=== PATIENT | male | born 1930 | race Caucasian/White ===

== ENCOUNTER 2017-06-01 11:24 | Emergency (ER) | payer OTHER ==
[2017-06-01 11:31] VITALS: BP 111/69; PULSE 82; TEMP 98.1; BMI 26.3
--- NOTE | 2017-06-01 11:47 | PDOC ---
History of Present Illness - General Chief Complaint: Headache Stated Complaint: HEADACHE Time Seen by Provider: 06/01/17 11:46 History Source: Patient Exam Limitations: No Limitations - History of Present Illness Initial Comments: 06/01/17 11:47 CHIEF COMPLAINT: Headache HISTORY OF PRESENT ILLNESS: This is an 83 year old male with a history of HTN, HLD, CAD, CHF, NIDDM, anemia requiring transfusions, AFib (on Coumadin), lung cancer s/p lobectomy, AAA repair, and TAVR who presents ambulatory to the ED complaining of 3 days of headache. The headache was gradual in onset. It initiated in the right temporal region but is now more occipital in location. He denies neck pain (although he does have some neck pain when he looks down at the floor), visual changes, focal weakness or numbness, change in gait or speech , or any other symptoms. His pain has not been relieved at all by Tylenol. He states that he does not usually get headaches. PCP is Dr. Mercedes. V/s on arrival are unremarkable. REVIEW OF SYSTEMS: GENERAL/CONSTITUTIONAL: No fever or chills. No weakness. No weight change. HEAD, EYES, EARS, NOSE AND THROAT: No change in vision. No ear pain or discharge. No sore throat. CARDIOVASCULAR: No chest pain or palpitations. RESPIRATORY: No cough, wheezing, or shortness of breath. GASTROINTESTINAL: No nausea, vomiting, diarrhea or constipation. GENITOURINARY: No dysuria, frequency, or change in urination. MUSCULOSKELETAL: No joint or muscle swelling or pain. No neck or back pain. SKIN: No rash or easy bruising. NEUROLOGIC: See HPI. PSYCHIATRIC: No depression or anxiety. ENDOCRINE: No increased thirst. No abnormal weight change. HEMATOLOGIC/LYMPHATIC: No anemia, easy bleeding, or history of blood clots. ALLERGIC/IMMUNOLOGIC: No hives or skin allergy. No latex allergy. PHYSICAL EXAM: GENERAL: The patient is awake, alert, and fully oriented, in no acute distress. HEAD: Normal with no signs of trauma. ENT: Pupils equal, round and reactive to light, extraocular movements intact, sclera anicteric, conjunctiva clear. Neck supple. LUNGS: Clear to auscultation bilaterally. Normal excursion. No respiratory distress or use of accessory muscles. CV: RRR, S1/S2, no MRG. Cap refill < 2 sec. ABDOMEN: Soft, non-distended, non-tender. EXTREMITIES: Normal range of motion, no edema. NEUROLOGICAL: Normal speech, normal gait. CN II-XII grossly intact. PSYCH: Normal mood, normal affect. SKIN: Warm, dry, normal turgor, no rashes or lesions noted. Past History - Past Medical History Allergies/Adverse Reactions: Allergies Allergy/AdvReac Type Severity Reaction Status Date / Time No Known Allergies Allergy Verified 06/01/17 11:31 Home Medications: Ambulatory Orders Atorvastatin Ca [Lipitor] 40 mg PO HS #0 12/01/14 Glimepiride [Amaryl -] 4 mg PO BIDAC #0 tablet 12/01/14 Sitagliptin Phosphate [Januvia -] 25 mg PO DAILY@0700 #0 tab 12/01/14 Amlodipine Besylate [Norvasc -] 5 mg PO DAILY 06/01/17 Carvedilol [Coreg -] 25 mg PO BID 06/01/17 Furosemide [Lasix -] 80 mg PO BID 06/01/17 Levothyroxine [Synthroid -] 100 mcg PO DAILY@0700 06/01/17 Warfarin Na [Coumadin -] 5 mg PO ASDIR 06/01/17 Anemia: Yes (d/t ASPRIN) Asthma: No Cancer: Yes (LUNG cancer) Cardiac Disorders: Yes (3 CARDIAC STENTS ,SOB, AORTIC ANEYRSM IN 1990) CVA: No COPD: No CHF: Yes Dementia: No Diabetes: Yes (TYPE 2,NEUROPATHIES) GI Disorders: No Disorders: No HTN: Yes Hypercholesterolemia: Yes Liver Disease: No Seizures: No Thyroid Disease: Yes (HYPO) - Surgical History Abdominal Surgery: Yes (hx HERNIA) Appendectomy: No Cardiac Surgery: Yes (3 STENTS, abdominalAORTIC ANERYSM) Cholecystectomy: No Lung Surgery: No Neurologic Surgery: No Orthopedic Surgery: No - Immunization History Immunization Up to Date: Yes - Psycho/Social/Smoking Cessation Hx Anxiety: No Suicidal Ideation: No Smoking Status: Yes Smoking History: Former smoker Have you smoked in the past 12 months: No Number of Cigarettes Smoked Daily: 0 If you are a former smoker, when did you quit?: 1990 Cigars Per Day: 0 Information on smoking cessation initiated: No Hx Alcohol Use: No Drug/Substance Use Hx: No Substance Use Type: None Hx Substance Use Treatment: No *Physical Exam - Vital Signs Last Vital Signs Temp Pulse Resp BP Pulse Ox 98.1 F 82 16 111/69 99 06/01/17 11:28 06/01/17 11:28 06/01/17 11:28 06/01/17 11:28 06/01/17 11:28 ED Treatment Course - LABORATORY CBC & Chemistry Diagram: 06/01/17 12:45 06/01/17 12:45 Medical Decision Making - Medical Decision Making 06/01/17 12:27 A/P: 86 year old male with headache which is atypical for him and unrelieved by OTC meds. 1. Basic labs + ESR/CRP 2. CTH 3. Reglan 10mg IVP + Benadrly 12.5mg IVP for symptomatic relief 4. Re-assess 06/01/17 13:47 CTH: No acute intracranial pathology. INR 2.4 Cr 1.9- baseline 06/01/17 15:01 Pain has improved. Discussed with neurology (Dr. Olivares) - will evaluate patient in ED prior to disposition. 06/01/17 15:[address] Olivares and cleared for discharge. Return precautions reviewed. *DC/Admit/Observation/Transfer Diagnosis at time of Disposition: Headache Qualifiers: Headache chronicity pattern: acute headache Intractability: not intractable - Discharge Dispostion Admit: No - Referrals Referrals: Anibal Mercedes MD [Primary Care Provider] - Dominic Olivraes MD [Staff Physician] - 1 week - Patient Instructions Printed Discharge Instructions: DI for Headache Additional Instructions: -Rest and stay well-hydrated -Follow up with the neurologist (contact information enclosed) in one week -Return here for sudden/severe headache, weakness or numbness in your arms or legs, changes in vision or speech, or any other concerning symptoms
[2017-06-01] MEDS ORDERED: METOCLOPRAMIDE HCL INJECTION 10 MG/2 ML VIAL IVPB ONE (11:58)
[2017-06-01] MEDS ORDERED: METOCLOPRAMIDE HCL INJECTION 10 MG/2 ML VIAL ONE (12:39)
[2017-06-01 12:53] LABS: BASOPHIL 0.8 % (0-2.0); EOSINOPHIL 1.5 % (0-4.5); MCH 27.1 pg (25.7-33.7); MCHC 33.3 g/dl (32.0-35.9); MEAN CELL VOLUME 81.3 fl (80-96); MEAN PLT VOLUME 8.6 fl (7.5-11.1); NEUTROPHILS 76.4 % (42.8-82.8); PLATELET COUNT 152 K/MM3 (134-434); RDW 15.7 % (11.9-15.9); WHITE BLOOD COUNT 8.7 K/mm3 (4.0-10.0)
[2017-06-01 13:07] LABS: INR 2.43 (0.82-1.09); PROTHROMBIN TIME (PATIENT) 27.2 SEC (9.98-11.88)
[2017-06-01 13:20] LABS: ALBUMIN 3.4 g/dl (3.4-5.0); ANION GAP 7 (8-16); CALCIUM 8.6 mg/dL (8.5-10.1); CO2 28 mmol/L (21-32); CREATININE 1.9 mg/dL (0.7-1.3); GLUCOSE,RANDOM 223 mg/dL (74-106); SGOT/AST 8 U/L (15-37); SGPT/ALT 15 U/L (12-78)
[2017-06-01 14:19] LABS: ALK PHOS 60 U/L (45-117); BILIRUBIN,TOTAL 0.6 mg/dL (0.2-1.0); TOT PROT 6.5 g/dl (6.4-8.2)
--- NOTE | 2017-06-01 17:20 | CONSULT ---
Consult - text type - Consultation Consultation Note: Neurology History of Present Illness 83 year old male with a history of HTN, HLD, CAD, CHF, NIDDM, anemia requiring transfusions, AFib (on Coumadin), lung cancer s/p lobectomy, AAA repair, and TAVR who presents ambulatory to the ED complaining of 3 days of headache. The headache was gradual in onset. It initiated in the right frontal region but is now more occipital in location. He denies neck pain (although he does have some neck pain when he looks down at the floor), visual changes, focal weakness or numbness, change in gait or speech, or any other symptoms. His pain has not been relieved at all by Tylenol. He states that he does not usually get headaches. I saw the patient in the ER and was doing well after hacing cup of tea (possibly improved with caffeine). He completed CT head which was negative for acute pathology. ESR was increased to 50 but does seem to be GCA as location is fronto-occipital. Also patient with cold and may be just acute phase reaction. Past History - Past Medical History Allergies/Adverse Reactions: Allergies Allergy/AdvReac Type Severity Reaction Status Date / Time No Known Allergies Allergy Verified 06/01/17 11:31 Home Medications: Ambulatory Orders Atorvastatin Ca [Lipitor] 40 mg PO HS #0 12/01/14 Glimepiride [Amaryl -] 4 mg PO BIDAC #0 tablet 12/01/14 Sitagliptin Phosphate [Januvia -] 25 mg PO DAILY@0700 #0 tab 12/01/14 Amlodipine Besylate [Norvasc -] 5 mg PO DAILY 06/01/17 Carvedilol [Coreg -] 25 mg PO BID 06/01/17 Furosemide [Lasix -] 80 mg PO BID 06/01/17 Levothyroxine [Synthroid -] 100 mcg PO DAILY@0700 06/01/17 Warfarin Na [Coumadin -] 5 mg PO ASDIR 06/01/17 Anemia: Yes (d/t ASPRIN) Asthma: No Cancer: Yes (LUNG cancer) Cardiac Disorders: Yes (3 CARDIAC STENTS ,SOB, AORTIC ANEYRSM IN 1990) CVA: No COPD: No CHF: Yes Dementia: No Diabetes: Yes (TYPE 2,NEUROPATHIES) GI Disorders: No Disorders: No HTN: Yes Hypercholesterolemia: Yes Liver Disease: No Seizures: No Thyroid Disease: Yes (HYPO) - Surgical History Abdominal Surgery: Yes (hx HERNIA) Appendectomy: No Cardiac Surgery: Yes (3 STENTS, abdominalAORTIC ANERYSM) Cholecystectomy: No Lung Surgery: No Neurologic Surgery: No Orthopedic Surgery: No - Immunization History Immunization Up to Date: Yes - Psycho/Social/Smoking Cessation Hx Anxiety: No Suicidal Ideation: No Smoking Status: Yes Smoking History: Former smoker Have you smoked in the past 12 months: No Number of Cigarettes Smoked Daily: 0 If you are a former smoker, when did you quit?: 1991 Cigars Per Day: 0 Information on smoking cessation initiated: No Hx Alcohol Use: No Drug/Substance Use Hx: No Substance Use Type: None Hx Substance Use Treatment: No REVIEW OF SYSTEMS: GENERAL/CONSTITUTIONAL: No fever or chills. No weakness. No weight change. HEAD, EYES, EARS, NOSE AND THROAT: No change in vision. No ear pain or discharge. No sore throat. CARDIOVASCULAR: No chest pain or palpitations. RESPIRATORY: No cough, wheezing, or shortness of breath. GASTROINTESTINAL: No nausea, vomiting, diarrhea or constipation. GENITOURINARY: No dysuria, frequency, or change in urination. MUSCULOSKELETAL: No joint or muscle swelling or pain. No neck or back pain. SKIN: No rash or easy bruising. PSYCHIATRIC: No depression or anxiety. ENDOCRINE: No increased thirst. No abnormal weight change. HEMATOLOGIC/LYMPHATIC: No anemia, easy bleeding, or history of blood clots. ALLERGIC/IMMUNOLOGIC: No hives or skin allergy. No latex allergy. *Physical Exam - Vital Signs Last Vital Signs Temp Pulse Resp BP Pulse Ox 98.1 F 82 16 111/69 99 06/01/17 11:28 06/01/17 11:28 06/01/17 11:28 06/01/17 11:28 06/01/17 11:28 PHYSICAL EXAM: GENERAL: The patient is awake, alert, and fully oriented, in no acute distress. HEAD: Normal with no signs of trauma. ENT: Pupils equal, round and reactive to light, extraocular movements intact, sclera anicteric, conjunctiva clear. Neck supple. LUNGS: Clear to auscultation bilaterally. Normal excursion. No respiratory distress or use of accessory muscles. CV: RRR, S1/S2, no MRG. Cap refill < 2 sec. ABDOMEN: Soft, non-distended, non-tender. EXTREMITIES: Normal range of motion, no edema. NEUROLOGICAL: Normal speech, normal gait. CN II-XII grossly intact. PSYCH: Normal mood, normal affect. SKIN: Warm, dry, normal turgor, no rashes or lesions noted. CBCD WBC 8.7 K/mm3 (4.0-10.0) 06/01/17 12:45 RBC 4.27 M/mm3 (4.00-5.60) D 06/01/17 12:45 Hgb 11.6 GM/dL (11.7-16.9) L D 06/01/17 12:45 Hct 34.7 % (35.4-49) L D 06/01/17 12:45 MCV 81.3 fl (80-96) 06/01/17 12:45 MCHC 33.3 g/dl (32.0-35.9) 06/01/17 12:45 RDW 15.7 % (11.9-15.9) 06/01/17 12:45 Plt Count 152 K/MM3 (134-434) 06/01/17 12:45 MPV 8.6 fl (7.5-11.1) 06/01/17 12:45 CMP Sodium 141 mmol/L (136-145) 06/01/17 12:45 Potassium 4.3 mmol/L (3.5-5.1) 06/01/17 12:45 Chloride 106 mmol/L (98-107) 06/01/17 12:45 Carbon Dioxide 28 mmol/L (21-32) 06/01/17 12:45 Anion Gap 7 (8-16) L 06/01/17 12:45 BUN 41 mg/dL (7-18) H 06/01/17 12:45 Creatinine 1.9 mg/dL (0.7-1.3) H 06/01/17 12:45 Creat Clearance w eGFR 33.62 (>60) 06/01/17 12:45 Calcium 8.6 mg/dL (8.5-10.1) 06/01/17 12:45 Total Bilirubin 0.6 mg/dL (0.2-1.0) D 06/01/17 12:45 AST 8 U/L (15-37) L D 06/01/17 12:45 ALT 15 U/L (12-78) D 06/01/17 12:45 Alkaline Phosphatase 60 U/L (45-117) D 06/01/17 12:45 Total Protein 6.5 g/dl (6.4-8.2) 06/01/17 12:45 Albumin 3.4 g/dl (3.4-5.0) 06/01/17 12:45 Medical Decision Making 83 year old male with a history of HTN, HLD, CAD, CHF, NIDDM, anemia requiring transfusions, AFib (on Coumadin), lung cancer s/p lobectomy, AAA repair, and TAVR who presents ambulatory to the ED complaining of 3 days of headache. The headache was gradual in onset. It initiated in the right frontal region but is now more occipital in location. He denies neck pain (although he does have some neck pain when he looks down at the floor), visual changes, focal weakness or numbness, change in gait or speech, or any other symptoms. His pain has not been relieved at all by Tylenol. He states that he does not usually get headaches. I saw the patient in the ER and was doing well after hacing cup of tea (possibly improved with caffeine). He completed CT head which was reviewed and negative for acute pathology. ESR was increased to 50 but does seem to be GCA as location is fronto-occipital. Also patient with cold and may be just acute phase reaction. Increased hydration discussed. Patient will follow up as outpatient. Has PPM and therefore would not be able to have MRI and does not seem needed. Continued BP control for HTN, normotensive in ER. Monitor glucose, goal is to be in euglycemic range.
== END 2017-06-01 16:10 | disposition home or self-care (01) ==
LOC: JER 11:24
PROC: 3E033GC Introduction of Other Therapeutic Substance into Peripheral Vein, Percutaneous Approach (ICD-10-PCS; principal; 2017-06-01)
DX: R51 Headache (principal); I10 Essential (primary) hypertension; I25.10 Atherosclerotic heart disease of native coronary artery without angina pectoris; I50.9 Heart failure, unspecified; E11.9 Type 2 diabetes mellitus without complications; I48.91 Unspecified atrial fibrillation; Z79.01 Long term (current) use of anticoagulants
CPT/HCPCS: 36415; 70450-TC; 80053; 85025; 85610; 85651; 86140; 99282-25

== ENCOUNTER 2017-11-18 11:25 | Emergency (ER) | payer OTHER ==
[2017-11-18 11:53] VITALS: BMI 27.7
--- NOTE | 2017-11-18 12:04 | PDOC ---
History of Present Illness <Jd Gregory - Last Filed: 11/18/17 15:10> - General History Source: Patient Exam Limitations: No Limitations - History of Present Illness Initial Comments: 11/18/17 12:43 87 y.o male with significant past medical history of anemia requiring multiple infusions in the past, Afib (on Warfarin), CAD s/p AAA repair, TAVR and stents x3, lung cancer s/p lobectomy, HTN, HLD, hypothyroidism, CHF, NIDDM, who was sent in by Dr. Mercedes with a hemoglobin of 8. The patient states that he had labs done [address] Mercedes called him with the results today. The patient notes that from about [id number] he was receiving blood transfusions every month. The patient has since discontinued aspirin. Over the past couple of years, the patient has not required any transfusions. The patient does not have any complaints at this time. Denies headache, fatigue, fever, chills, nausea, vomiting. Denies bloody or tarry stools. Denies chest pain, SOB. Denies dizziness, lightheadedness. Denies urinary symptoms. Allergies: NKA PCP: Dr. Mercedes Professional Architect: Dr. Carolina <Therese Solimanica - Last Filed: 11/18/17 15:29> - General Chief Complaint: Revisit, Lab Variance Stated Complaint: LAB VARIANCE (PCP SENT) Time Seen by Provider: 11/18/17 12:04 Past History - Past Medical History Anemia: Yes (d/t ASPRIN) Asthma: No Cancer: Yes (LUNG cancer) Cardiac Disorders: Yes (3 CARDIAC STENTS ,SOB, AORTIC ANEYRSM IN 1990) CVA: No COPD: No CHF: Yes DVT: No Dementia: No Diabetes: Yes (TYPE 2,NEUROPATHIES) GI Disorders: No Disorders: No HTN: Yes Hypercholesterolemia: Yes Liver Disease: No Seizures: No Thyroid Disease: Yes (HYPO) - Surgical History Abdominal Surgery: Yes (hx HERNIA) Appendectomy: No Cardiac Surgery: Yes (3 STENTS, abdominalAORTIC ANERYSM) Cholecystectomy: No Lung Surgery: No Neurologic Surgery: No Orthopedic Surgery: No - Immunization History Immunization Up to Date: Yes - Suicide/Smoking/Psychosocial Hx Smoking Status: Yes Smoking History: Never smoked Have you smoked in the past 12 months: No Number of Cigarettes Smoked Daily: 0 If you are a former smoker, when did you quit?: 1990 Cigars Per Day: 0 Information on smoking cessation initiated: No Hx Alcohol Use: No Drug/Substance Use Hx: No Substance Use Type: None Hx Substance Use Treatment: No <Jd Gregory - Last Filed: 11/18/17 15:10> <Alyssia Soliman - Last Filed: 11/18/17 15:29> - Past Medical History Allergies/Adverse Reactions: Allergies Allergy/AdvReac Type Severity Reaction Status Date / Time No Known Allergies Allergy Verified 11/18/17 11:49 Home Medications: Ambulatory Orders Atorvastatin Ca [Lipitor] 40 mg PO HS #0 12/01/14 Glimepiride [Amaryl -] 4 mg PO BIDAC #0 tablet 12/01/14 Sitagliptin Phosphate [Januvia -] 25 mg PO DAILY@0700 #0 tab 12/01/14 Amlodipine Besylate [Norvasc -] 5 mg PO DAILY 06/01/17 Carvedilol [Coreg -] 25 mg PO BID 06/01/17 Furosemide [Lasix -] 80 mg PO BID 06/01/17 Levothyroxine [Synthroid -] 100 mcg PO DAILY@0700 06/01/17 Warfarin Na [Coumadin -] 5 mg PO ASDIR 06/01/17 Review of Systems - Review of Systems Able to Perform ROS?: Yes Comments:: 11/18/17 12:43 CONSTITUTIONAL: No fever, no chills, no fatigue EYES: No visual changes ENT: No ear pain, no sore throat CARDIOVASCULAR: No chest pain, no palpitations RESPIRATORY: No cough, no SOB GI: No abdominal pain, no nausea, no vomiting, no constipation, no diarrhea GENITOURINARY: No dysuria, no frequency, no hematuria MUSKULOSKELETAL: No back pain, no joint pain, no myalgias SKIN: No rash NEURO: No headache <Alyssia Soliman - Last Filed: 11/18/17 15:29> *Physical Exam - Vital Signs Last Vital Signs Temp Pulse Resp BP Pulse Ox 97.7 F 77 16 102/41 97 11/18/17 11:50 11/18/17 11:50 11/18/17 11:50 11/18/17 11:50 11/18/17 11:50 <Jd Gregory - Last Filed: 11/18/17 15:10> - Vital Signs Last Vital Signs Temp Pulse Resp BP Pulse Ox 97.7 F 77 16 102/41 97 11/18/17 11:50 11/18/17 11:50 11/18/17 11:50 11/18/17 11:50 11/18/17 11:50 - Physical Exam Comments: 11/18/17 12:44 CONSTITUTIONAL: Well-appearing; well-nourished; in no apparent distress HEAD: Normocephalic; atraumatic EYES: PERRL; EOM intact. +Conjunctiva pale ENMT: External appears normal; normal oropharynx NECK: Supple; nontender; no cervical lymphadenopathy CARD: Normal S1, S2 is metallic; no murmurs, rubs, or gallops RESP: Normal chest excursion with respiration; breath sounds clear and equal bilaterally; no wheezes, rhonchi, or rales ABD: Soft, non-distended; non-tender; no palpable organomegaly, no palpable hernias EXT: Normal ROM in all four extremities; non-tender to palpation; distal pulses intact SKIN: Warm, dry, no rash NEURO: No focal neurological deficiencies. <Alyssia Soliman - Last Filed: 11/18/17 15:29> Heart Score/ECG Review #1 11/18/17 15:28 Paced rhythm at a rate of 64 bpm <Alyssia Soliman - Last Filed: 11/18/17 15:29> ED Treatment Course - LABORATORY CBC & Chemistry Diagram: 11/18/17 12:34 11/18/17 12:34 <Jd Gregory - Last Filed: 11/18/17 15:10> - LABORATORY CBC & Chemistry Diagram: 11/18/17 12:34 11/18/17 12:34 <Alyssia Soliman - Last Filed: 11/18/17 15:29> Medical Decision Making - Medical Decision Making 11/18/17 15:11 Patient is a well-appearing 87-year-old male with multiple comorbidities, on Coumadin due to mechanical aortic valve replacement presents to the ER for a drop in hemoglobin. Patient was undergoing routine evaluation at his primary care physician's office one week previously when a CBC obtained at that time showed a hemoglobin of 8 which has decreased from a baseline of 12 obtain 6 months previously. Patient denies melena/bright red blood per rectum. Patient denies shortness of breath and dyspnea with exertion. Patient was referred to the ER for a GI evaluation which at this time he is refusing patient states that he's had numerous colonoscopies and endoscopies and is not looking forward to additional evaluations. At this time, there is no indication for packed cell transfusion. Patient seen and evaluated by Dr. Torres who agrees with the plan. Patient advised that if he develops symptoms or notices melena bright red blood he must report to the ER immediately. Otherwise the patient will follow-up with PMD for repeat CBCs. Will discharge. <Jd Gregory - Last Filed: 11/18/17 15:10> *DC/Admit/Observation/Transfer - Attestations Physician Attestion: 11/18/17 15:11 The documentation was prepared by the scribe under my direct supervision. I have reviewed the documentation which correctly represents the findings, medical decision-making and critical action taken by me. <Jd Gregory - Last Filed: 11/18/17 15:10> - Attestations Scribe Attestion: 11/18/17 12:44 Documentation prepared by JONELLE Ivan, acting as veterinary medical officer for Jd Gregory MD. <Alyssia Soliman - Last Filed: 11/18/17 15:29> Diagnosis at time of Disposition: Anemia Qualifiers: Anemia type: iron deficiency Iron deficiency anemia type: unspecified iron deficiency Qualified Code(s): D50.9 - Iron deficiency anemia, unspecified - Discharge Dispostion Disposition: HOME Condition at time of disposition: Stable - Referrals Referrals: Anibal Mercedes MD [Primary Care Provider] - - Patient Instructions Printed Discharge Instructions: Iron-Deficiency Anemia Additional Instructions: Follow-up with your primary care physician in one week. Return immediately for dark tarry stools or rectal bleeding. Return immediately for shortness of breath or chest pain.
[2017-11-18 12:45] LABS: HEMATOCRIT 27.1 % (35.4-49); HEMOGLOBIN 8.4 GM/dL (11.7-16.9); MCH 23.1 pg (25.7-33.7); MEAN CELL VOLUME 74.5 fl (80-96); MEAN PLT VOLUME 8.4 fl (7.5-11.1); PLATELET COUNT 271 K/MM3 (134-434); RBC 3.64 M/mm3 (4.00-5.60); RDW 18.1 % (11.9-15.9); WHITE BLOOD COUNT 8.8 K/mm3 (4.0-10.0)
[2017-11-18 13:02] LABS: INR 2.43 (0.82-1.09); PROTHROMBIN TIME (PATIENT) 27.5 SEC (9.98-11.88)
[2017-11-18 13:16] LABS: ALBUMIN 3.3 g/dl (3.4-5.0); ANION GAP 9 (8-16); BILIRUBIN,TOTAL 0.4 mg/dL (0.2-1.0); BLOOD UREA NITROGEN 56 mg/dL (7-18); CALCIUM 9.4 mg/dL (8.5-10.1); CHLORIDE 103 mmol/L (98-107); CO2 26 mmol/L (21-32); CREATININE 2.1 mg/dL (0.7-1.3); GLUCOSE,RANDOM 141 mg/dL (74-106); SGPT/ALT 16 U/L (12-78); SODIUM 138 mmol/L (136-145); TOT PROT 6.9 g/dl (6.4-8.2)
[2017-11-18 13:17] LABS: ALK PHOS 68 U/L (45-117)
[2017-11-18 13:21] LABS: POTASSIUM 4.8 mmol/L (3.5-5.1); SGOT/AST 24 U/L (15-37)
[2017-11-18 14:22] LABS: LYMPH % 11.3 % (8-40); MONO % 10.9 % (3.8-10.2); NEUT % 74.5 % (42.8-82.8)
[2017-11-18 14:23] LABS: BASO % 0.7 % (0-2.0); EOS % 2.6 % (0-4.5)
--- NOTE | 2017-11-18 14:51 | EKG ---
Test Reason : Blood Pressure : / mmHG Vent. Rate : 064 BPM Atrial Rate : 075 BPM P-R Int : 000 ms QRS Dur : 168 ms QT Int : 498 ms P-R-T Axes : 058 000 076 degrees QTc Int : 513 ms SINUS RHYTHM WITH MARKED SINUS ARRHYTHMIA WITH 1ST DEGREE A-V BLOCK WITH OCCASIONAL ventricular-paced complexes LEFT BUNDLE BRANCH BLOCK ABNORMAL ECG WHEN COMPARED WITH ECG OF 30-NOV-2014 17:03, Confirmed by SPENSER URBANO MD ([id number]) on 11/18/2017 2:50:45 PM Referred By: Confirmed By:SPENSER URBANO MD
--- NOTE | 2017-11-18 15:09 | CONSULT ---
Consult Consult Specialty:: Internal Medicine Referred by:: Dr Gregory Reason for Consultation:: Evaluation for admission - History of Present Illness Chief Complaint: I was told to come in History of Present Illness: Mr Moran is a very pleasant 87 year old male who came in after being found to have anemia. He says he has a history of anemia and underwent multiple evaluations in the past including colonoscopy, endoscopy, and capsule endoscopy. He says that at the time no source of bleeding was found, but he was on aspirin and this was discontinued. After this the bleeding stopped. He was being followed by Dr Mercedes in the outpatient setting and was getting monthly CBCs, however they were stable so patient requested to stop monthly CBCs and instead do them quarterly. He says he is doing well and is without complaint. He says he sometimes get lightheaded on standing but this is chronic and expected "for his age". He also gets slightly short of breath when walking up 12 stairs, again he says this is to be expected "for his age". He denies fevers , chills, passing out, chest pain, shortness of breath at rest, coughing, nausea , vomiting, abdominal pain, diarrhea, constipation, melena, hematochezia, hematuria, difficulty or pain on urination, or swelling. Patient admits that he minimizes his symptoms and often ignores how he feels. - History Source History Provided By: Patient Limitations to Obtaining History: No Limitations - Past Medical History Cardio/Vascular: Yes: AFIB, Aneurysm (s/p repair 1990), CAD ( stents: x1 1995, x2 2004), [place], Other (Vavlular disease: unknown which valve) Pulmonary: Yes: Other (Lung Cancer s/p resection 07/2013 Dr. Cifuentes @ [facility]) Gastrointestinal: Yes: GI Bleed (unclear source) Renal/: Yes: Renal Inusuff - Past Surgical History Past Surgical History: Yes: AAA Repair, Colonoscopy, Hernia Repair - Alcohol/Substance Use Hx Alcohol Use: No History of Substance Use: reports: None - Smoking History Smoking history: Never smoked Have you smoked in the past 12 months: No Aproximately how many cigarettes per day: 0 If you are a former smoker, when did you quit?: 1990 - Social History Usual Living Arrangement: With Spouse ADL: Independent History of Recent Travel: No Home Medications - Allergies Allergies/Adverse Reactions: Allergies Allergy/AdvReac Type Severity Reaction Status Date / Time No Known Allergies Allergy Verified 11/18/17 11:49 - Home Medications Home Medications: Ambulatory Orders Atorvastatin Ca [Lipitor] 40 mg PO HS #0 12/01/14 Glimepiride [Amaryl -] 4 mg PO BIDAC #0 tablet 12/01/14 Sitagliptin Phosphate [Januvia -] 25 mg PO DAILY@0700 #0 tab 12/01/14 Amlodipine Besylate [Norvasc -] 5 mg PO DAILY 06/01/17 Carvedilol [Coreg -] 25 mg PO BID 06/01/17 Furosemide [Lasix -] 80 mg PO BID 06/01/17 Levothyroxine [Synthroid -] 100 mcg PO DAILY@0700 06/01/17 Warfarin Na [Coumadin -] 5 mg PO ASDIR 06/01/17 Family Disease History - Family Disease History Family Disease History: Heart Disease: Brother, [place]: Sister Review of Systems Findings/Remarks: Full review of systems obtained, as per HPI and otherwise negative. Physical Exam Vital Signs: Vital Signs Temperature 36.5 C 11/18/17 11:50 Pulse Rate 77 11/18/17 11:50 Respiratory Rate 16 11/18/17 11:50 Blood Pressure 102/41 11/18/17 11:50 O2 Sat by Pulse Oximetry (%) 97 11/18/17 12:47 Constitutional: Yes: Well Nourished, No Distress, Calm Eyes: Yes: Conjunctiva Clear, EOM Intact, PERRL HENT: Yes: Atraumatic, Normocephalic Cardiovascular: Yes: Pulse Irregular, Other (audible click). No: Tachycardia, Gallop, Murmur, Rub Respiratory: Yes: Regular, CTA Bilaterally. No: Rales, Rhonchi, Wheezes Gastrointestinal: Yes: Normal Bowel Sounds, Soft. No: Distention, Tenderness Extremities: Yes: WNL Edema: No Labs: CBC, BMP 11/18/17 12:34 11/18/17 12:34 Imaging - Results X-ray: Report Reviewed, Image Reviewed Problem List - Problems (1) Anemia Code(s): D64.9 - ANEMIA, UNSPECIFIED Qualifiers: Anemia type: iron deficiency Iron deficiency anemia type: unspecified iron deficiency Qualified Code(s): D50.9 - Iron deficiency anemia, unspecified (2) Atherosclerotic heart disease Code(s): I25.10 - ATHSCL HEART DISEASE OF [place] CORONARY ARTERY W/O ANG PCTRS (3) Chronic kidney disease Code(s): N18.9 - CHRONIC KIDNEY DISEASE, UNSPECIFIED (4) Diabetes mellitus Code(s): E11.9 - TYPE 2 DIABETES MELLITUS WITHOUT COMPLICATIONS (5) Dyspnea on exertion Code(s): R06.09 - OTHER FORMS OF DYSPNEA (6) Hypercholesteremia Code(s): E78.0 - PURE HYPERCHOLESTEROLEMIA * DO NOT USE * (7) Hypertension Code(s): I10 - ESSENTIAL (PRIMARY) HYPERTENSION (8) Left ventricular systolic dysfunction Code(s): I51.9 - HEART DISEASE, UNSPECIFIED (9) Paroxysmal atrial fibrillation Code(s): I48.0 - PAROXYSMAL ATRIAL FIBRILLATION (10) Mechanical heart valve present Code(s): Z95.2 - PRESENCE OF PROSTHETIC HEART VALVE Assessment/Plan -case d/w patient and -considering patient has increasing anemia, symptomatic, CKD, therapeutic on coumadin, and possible heparin allergy recommended to come in for GI eval -however patient says that under no circumstances will he agree to further GI procedures, saying he has too many in the past -discussed options with patient, he would prefer to go back to monthly cbc checks with transfusions as needed -made patient aware that if he had worsening lightheadedness, passing out, chest pain, progressive shortness of breath, or bleeding he should present to the ED -patient expressed understanding of this plan -considering patient does not want further work up, will not admit patient as risk of admission (exposure to influenza and infection) outweighs risk (24 hour observation) -Dr Mercedes made aware of plan and will continue to follow as an outpatient
[2017-11-18 15:23] VITALS: BP 150/55; PULSE 75; TEMP 98.1
== END 2017-11-18 15:26 | disposition home or self-care (01) ==
LOC: JER 11:25
DX: D50.9 Iron deficiency anemia, unspecified (principal); Z79.01 Long term (current) use of anticoagulants; I48.91 Unspecified atrial fibrillation; I25.10 Atherosclerotic heart disease of native coronary artery without angina pectoris; Z95.5 Presence of coronary angioplasty implant and graft; Z85.118 Personal history of other malignant neoplasm of bronchus and lung; E78.00 Pure hypercholesterolemia, unspecified; E03.9 Hypothyroidism, unspecified
CPT/HCPCS: 36415; 71045-TC; 80053; 85025; 85610; 86850; 86900; 86901; 93005; 93010; 99282-25

== ENCOUNTER 2017-11-23 10:33 | Inpatient (IN) | payer OTHER ==
[2017-11-23 11:24] LABS: BASO % 0.5 % (0-2.0); EOS % 0.5 % (0-4.5); HEMATOCRIT 27.2 % (35.4-49); HEMOGLOBIN 8.1 GM/dL (11.7-16.9); LYMPH % 6.5 % (8-40); MCH 22.7 pg (25.7-33.7); MCHC 29.7 g/dl (32.0-35.9); MEAN CELL VOLUME 76.3 fl (80-96); MEAN PLT VOLUME 8.3 fl (7.5-11.1); MONO % 8.8 % (3.8-10.2); NEUT % 83.7 % (42.8-82.8); PLATELET COUNT 213 K/MM3 (134-434); RBC 3.56 M/mm3 (4.00-5.60); RDW 18.9 % (11.9-15.9); WHITE BLOOD COUNT 11.8 K/mm3 (4.0-10.0)
--- NOTE | 2017-11-23 11:33 | PDOC ---
History of Present Illness - General History Source: Patient Exam Limitations: No Limitations <Julita Vaughna - Last Filed: 11/23/17 16:01> <Girish Clay - Last Filed: 11/24/17 08:17> - General Chief Complaint: Chest Pain Stated Complaint: CHEST PAIN Time Seen by Provider: 11/23/17 11:04 - History of Present Illness Initial Comments: 11/23/17 16:01 The patient is a 87-year-old male with a significant past medical history of A- fib (on Warfarin), CAD s/p AAA repair, TAVR and stents x3, lung cancer s/p lobectomy, HTN, HLD, hypothyroidism, CHF, NIDDM, and anemia requiring multiple infusions in the past, who presents to the emergency department with shortness of breath and mild chest discomfort since yesterday. He describes the chest discomfort as a burning sensation. He states he has more difficulty breathing when going up stairs. Patient is not currently on oxygen at home. He also admits to a productive cough with white sputum. Patient states he was recently started on iron supplements, and states the color of his stool is black. The patient denies leg swelling, back pain, headache, and dizziness. The patient denies fever, chills, nausea, vomit, diarrhea and constipation. The patient denies dysuria, frequency, urgency and hematuria. Allergies: NKDA Social History: former smoker PCP: Dr. Mercedes Pattern Ruler: Dr. Tavera (Olimpia Vaughn) Past History <RoderickOlimpia - Last Filed: 11/23/17 16:01> - Past Medical History Anemia: Yes (d/t ASPRIN) Asthma: No Cancer: Yes (LUNG cancer) Cardiac Disorders: Yes (3 CARDIAC STENTS ,SOB, AORTIC ANEYRSM IN 1990) CVA: No COPD: No CHF: Yes DVT: No Dementia: No Diabetes: Yes (TYPE 2,NEUROPATHIES) GI Disorders: No Disorders: No HTN: Yes Hypercholesterolemia: Yes Liver Disease: No Seizures: No Thyroid Disease: Yes (HYPO) - Surgical History Abdominal Surgery: Yes (hx HERNIA) Appendectomy: No Cardiac Surgery: Yes (3 STENTS, abdominalAORTIC ANERYSM) Cholecystectomy: No Lung Surgery: No Neurologic Surgery: No Orthopedic Surgery: No - Immunization History Immunization Up to Date: Yes - Suicide/Smoking/Psychosocial Hx Smoking Status: Yes Smoking History: Never smoked Have you smoked in the past 12 months: No Number of Cigarettes Smoked Daily: 0 If you are a former smoker, when did you quit?: 1993 Cigars Per Day: 0 Information on smoking cessation initiated: No Hx Alcohol Use: No Drug/Substance Use Hx: No Substance Use Type: None Hx Substance Use Treatment: No <Girish Clay - Last Filed: 11/24/17 08:17> - Past Medical History Allergies/Adverse Reactions: Allergies Allergy/AdvReac Type Severity Reaction Status Date / Time No Known Allergies Allergy Verified 11/23/17 10:44 Home Medications: Ambulatory Orders Allopurinol [Zyloprim -] 100 mg PO TID 11/23/17 Amlodipine Besylate 5 mg PO DAILY 11/23/17 Atorvastatin Ca [Lipitor] 40 mg PO HS 11/23/17 Carvedilol 25 mg PO BID 11/23/17 Furosemide 80 mg PO BID 11/23/17 Glimepiride 4 mg PO BID 11/23/17 Sacubitril/Valsartan [Entresto 49 mg-51 mg Tablet] 1 each PO BID 11/23/17 Sitagliptin Phosphate [Januvia] 25 mg PO BID 11/23/17 Warfarin Na [Coumadin] 5 mg PO DAILY 11/23/17 Cardiac Specific PMH - Complaint Specific PMHX Angina: No Cardiac Arrhythmia: No GERD: No Pacemaker: No Peripheral Vascular Disease: No <Girish Clay - Last Filed: 11/24/17 08:17> Review of Systems - Review of Systems Able to Perform ROS?: Yes <Olimpia Vaughn - Last Filed: 11/23/17 16:01> <Girish Clay - Last Filed: 11/24/17 08:17> - Review of Systems Comments:: 11/23/17 16:02 CONSTITUTIONAL: No reported: Fever, Chills, Diaphoresis, Generalized Weakness, Malaise, Loss of Appetite HEENT: No reported: Rhinorrhea, Nasal Congestion, Throat Pain, Throat Swelling, Difficulty Swallowing, Mouth Swelling, Ear Pain, Eye Pain, Visual Changes CARDIOVASCULAR: (+) Chest pain No reported: Syncope, Palpitations, Irregular Heart Rate, Lightheadedness, Peripheral Edema RESPIRATORY: (+) Shortness of Breath, (+) Cough No reported: Orthopnea, Wheezing, Stridor, Hemoptysis GASTROINTESTINAL: No reported: Abdominal pain, Abdominal Distension, Nausea, Vomiting, Diarrhea, Constipation, Melena, Hematochezia GENITOURINARY: No reported: Dysuria, Frequency, Urgency, Hesitancy, Flank Pain, Genital Pain MUSCULOSKELETAL: No reported: Myalgia, Arthralgia, Joint Swelling, Back pain, Neck Pain SKIN: No reported: Rash, Itching, Pallor HEMEATOLOGIC/IMMUNOLOGIC: No reported: Easy Bleeding, Easy Bruising, Lymphadenopathy, Frequent infections ENDOCRINE: No reported: Unexplained Weight Gain, Unexplained Weight Loss, Heat Intolerance , Cold Intolerance NEUROLOGIC: No reported: Headache, Focal Weakness, Paresthesias, Vertigo, Lightheadedness, Unsteady Gait, Seizure, Mental Status Changes, Incontinence PSYCHIATRIC: No reported: Anxiety, Depression (Olimpia Vaughn) *Physical Exam <Olimpia Vaughn - Last Filed: 11/23/17 16:01> <Girish Clay - Last Filed: 11/24/17 08:17> - Vital Signs Last Vital Signs Temp Pulse Resp BP Pulse Ox 98.1 F 76 20 123/52 100 11/24/17 06:00 11/24/17 06:00 11/24/17 06:00 11/24/17 06:00 11/24/17 06:27 - Physical Exam Comments: 11/23/17 16:02 GENERAL: The patient is awake, alert, and fully oriented, Nontoxic - in no acute distress. HEAD: Normocephalic, atraumatic. EYES: extraocular movements intact, sclera anicteric, conjunctiva clear. ENT: Normal voice, Moist mucous membranes. NECK: Normal range of motion, supple LUNGS: (+) Rales at right lung. No wheezes, no rhonchi. HEART: (+) Pacemaker in left chest. Regular rate and rhythm, without murmur, rub or gallop. ABDOMEN: Soft, nontender, normoactive bowel sounds. No guarding, no rebound.No CVA tenderness EXTREMITIES: Normal range of motion, trace edema. NEUROLOGICAL: No facial assymetry, Normal speech, moving all 4 extermities spontneously and symmetrically PSYCH: Normal mood, normal affect. SKIN: (+) Skin is hot to touch. Dry, normal turgor, (Olimpia Vaughn) Heart Score/ECG Review <Olimpia Vaughn - Last Filed: 11/23/17 16:01> <Danna,Girish - Last Filed: 11/24/17 08:17> - ECG Impressions Comment:: 11/23/17 13:21 Twelve-lead EKG was performed and reviewed by me. There is normal sinus rhythm with a normal rate. rate of 80 first degree AV bloick LBBB (Girish Clay) ED Treatment Course - LABORATORY CBC & Chemistry Diagram: 11/23/17 11:11 11/23/17 11:11 <Julita Vaughna - Last Filed: 11/23/17 16:01> - LABORATORY CBC & Chemistry Diagram: 11/24/17 05:30 11/23/17 11:11 <DannaGirish - Last Filed: 11/24/17 08:17> - ADDITIONAL ORDERS Additional order review: Laboratory Results 11/23/17 13:26 Lactic Acid 1.2 11/23/17 11:11 RBC 3.56 L MCV 76.3 L MCHC 29.7 L RDW 18.9 H MPV 8.3 Neutrophils % 83.7 H Lymphocytes % 6.5 L D Monocytes % 8.8 Eosinophils % 0.5 D Basophils % 0.5 - RADIOLOGY Radiology Studies Ordered: Category Date Time Status CHEST X-RAY PORTABLE* [RAD] Stat Radiology 11/23/17 11:16 Completed - Medications Given in the ED: ED Medications Discontinued Medications Generic Name Dose Route Start Last Admin Trade Name Freq PRN Reason Stop Dose Admin Furosemide 40 mg 11/23/17 14:45 11/23/17 15:30 Lasix Injection - IVPUSH 11/23/17 14:46 40 mg ONCE ONE Administration Furosemide 40 mg 11/23/17 15:07 11/23/17 16:13 Lasix Injection - IVPUSH 11/23/17 15:08 Not Given ONCE ONE Furosemide 20 mg 11/23/17 22:00 11/23/17 22:12 Lasix Injection - IVPUSH 11/23/17 22:01 20 mg ONCE ONE Administration Azithromycin 500 mg/ Dextrose 250 mls @ 250 mls/hr 11/23/17 12:35 11/23/17 13 :38 IVPB 11/23/17 13:34 250 mls/hr ONCE ONE Administration Ceftriaxone Sodium 1 gm/ 50 mls @ 100 mls/hr 11/23/17 12:35 11/23/17 13:25 Dextrose IVPB 11/23/17 13:04 100 mls/hr ONCE ONE Administration Medical Decision Making <Olimpia Vaughn - Last Filed: 11/23/17 16:01> <Girish Clay - Last Filed: 11/24/17 08:17> - Medical Decision Making 11/23/17 15:52 Dr. Negron was consulted, and requests interrogation of patient's device if possible. (Olimpia Vaughn) 11/23/17 11:33 87y M hx of lung ca s/p resenction, CAD s/p stents sp valve replacement, anemia , sp PM placement CHF, DM with neuropathy presents with complaint of sob, burning left sided chest pain since last night, +PARIKH when yessica gup stairs. no associated fever/chills, leg swelling, hemoptysis. +chronic coughing but not signficantly worse than usual. no associateed fever/chills, leg swelling. on exam pt in no distress mild rales on the RLL ddx includes pna, chf, acs will ck labs cxr ekg will reassess 11/23/17 12:40 cxr shows RLL infiltrate vs congestion labs reviewed concenr for pna will tx with CAP abx will admit for further mangaement 11/23/17 14:44 bnp elevated suspect his dx is due to chf rather than pna pt was given abx previously due to possibliyt o fpna, but without increased cough, fevers, leukocyotisis, suspect his sob/parikh is due to chf will give lasix will admit for furhter managmenet 11/23/17 15:15 pt was feeling more sob - suspect due to fluids athat were given with abx - pt s/p lasix, but will start pt on bipap in the [facility] dr. still agree with management and admission to tele Case discussed in detail with admitting physician including history, physical exam and ancillary studies. Admitting physician has assumed care for the patient, will follow all pending diagnostics and will complete the evaluation and treatment. CRITICAL CARE DOCUMENTATION: I spent ~35 minutes of Critical Care time, excluding separately billable procedures, involving high complexity decision making to assess, manipulate and support vital system function(s) to treat single or multiple vital organ system failure and/or to prevent further life threatening deterioration of the patient' s condition. (Girish Clay) *DC/Admit/Observation/Transfer <Olimpia Vaughn - Last Filed: 11/23/17 16:01> - Discharge Dispostion Admit: Yes <Girish Clay - Last Filed: 11/24/17 08:17> Diagnosis at time of Disposition: Congestive heart failure Qualifiers: Congestive heart failure type: systolic Congestive heart failure chronicity: acute on chronic Qualified Code(s): I50.23 - Acute on chronic systolic ( congestive) heart failure Chest pain Qualifiers: Chest pain type: other chest pain Qualified Code(s): R07.89 - Other chest pain - Discharge Dispostion Condition at time of disposition: Stable - Attestations Scribe Attestion: 11/23/17 16:03 Documentation prepared by Olimpia Vaughn, acting as medical assembler for Girish Clay MD, /DO. (Olimpia Vaughn)
[2017-11-23 11:43] LABS: INR 2.21 (0.82-1.09)
[2017-11-23 11:55] LABS: ALBUMIN 3.1 g/dl (3.4-5.0); ANION GAP 12 (8-16); BLOOD UREA NITROGEN 49 mg/dL (7-18); CHLORIDE 102 mmol/L (98-107); CO2 22 mmol/L (21-32); CREATININE 2.5 mg/dL (0.7-1.3); GLUCOSE,RANDOM 181 mg/dL (74-106); POTASSIUM 4.3 mmol/L (3.5-5.1); SGOT/AST 7 U/L (15-37); SGPT/ALT 13 U/L (12-78); SODIUM 136 mmol/L (136-145)
[2017-11-23 11:59] LABS: ALK PHOS 65 U/L (45-117); BILIRUBIN,TOTAL 0.7 mg/dL (0.2-1.0); TOT PROT 6.2 g/dl (6.4-8.2)
[2017-11-23] MEDS ORDERED: AZITHROMYCIN IVPB 500 MG in DEXTROSE 5%-WATER - 250 ML IVPB ONE (12:35)
[2017-11-23] MEDS ORDERED: CEFTRIAXONE 1 GM in DEXTROSE 5%-WATER - 50 ML IVPB ONE (12:35)
--- NOTE | 2017-11-23 12:40 | EKG ---
Test Reason : Blood Pressure : / mmHG Vent. Rate : 080 BPM Atrial Rate : 080 BPM P-R Int : 256 ms QRS Dur : 166 ms QT Int : 488 ms P-R-T Axes : 055 003 116 degrees QTc Int : 562 ms PROBABLE SINUS RHYTHM WITH 1ST DEGREE AV CHAVEZ, ? AV DISSOCIATION LEFT BUNDLE BRANCH BLOCK ABNORMAL ECG WHEN COMPARED WITH ECG OF 18-NOV-2017 14:42, NEED TO CHECK PACEMAKER SETTING CLINICAL CORRELATION IS RECOMMENDED Confirmed by YANIQUE REESE MD ([id number]) on 11/23/2017 12:40:06 PM Referred By: Confirmed By:YANIQUE REESE MD
[2017-11-23] MEDS ORDERED: AZITHROMYCIN IVPB 250 ML IVPB ONE (12:45)
[2017-11-23] MEDS ORDERED: CEFTRIAXONE 1 GM/50 ML BAG ONE (12:45)
[2017-11-23 14:01] LABS: N-TERMINAL BNP 8092.54 pg/ml (5-450)
[2017-11-23 14:15] LABS: INR 2.09 (0.82-1.09); PROTHROMBIN TIME (PATIENT) 23.6 SEC (9.98-11.88)
[2017-11-23 14:18] LABS: ACTIVATED PTT 27.1 SECONDS (26.9-34.4)
[2017-11-23] MEDS ORDERED: FUROSEMIDE 40 MG/4 ML INJECTABLE VIAL IVPUSH ONE ×3 (14:45→22:00)
[2017-11-23] MEDS ORDERED: FUROSEMIDE 40 MG/4 ML INJECTABLE VIAL ONE ×2 (15:24→21:50)
[2017-11-23] MEDS ORDERED: ACETAMINOPHEN 325 MG TABLET (FP) PO PRN (16:06)
--- NOTE | 2017-11-23 16:15 | HP ---
Admitting History and Physical - Primary Care Physician PCP: Anibal Mercedes - Admission Chief Complaint: I feel like I'm suffocating History of Present Illness: Mr Moran comes in with complaint of difficulty breathing. He says it began on Thursday but it was minimal. However over the next two days it worsened significantly. He says it was worse when he lies down and on exertion. He can normally walk up 12 stairs before getting short of breath however he is now short of breath at rest. He has a chronic cough that is non-productive and unchanged. He has lightheadedness on standing. He has minimal edema in his legs. He denies passing out, fevers, chills, chest pain, abdominal pain, nausea , vomiting, and diarrhea. He says he is getting constipated from iron pills. He has not noticed pain on urination but says he has not urinated much the past two days. He is short of breath now. - Past Medical History Cardiovascular: Yes: AFIB, Aneurysm (s/p repair 1990), CAD ( stents: x1 1995, x2 2004), [place], Other (Vavlular disease: unknown which valve) Pulmonary: Yes: Other (Lung Cancer s/p resection 07/2013 Dr. Cifuentes @ [facility]) Gastrointestinal: Yes: GI Bleed (unclear source) Renal/: Yes: Renal Inusuff Heme/Onc: Yes: Anemia, Cancer (Lung s/p resection 2012: no chemo or radiation) - Past Surgical History Past Surgical History: Yes: AAA Repair, Colonoscopy, Hernia Repair - Smoking History Smoking history: Never smoked Have you smoked in the past 12 months: No Aproximately how many cigarettes per day: 0 If you are a former smoker, when did you quit?: 1993 - Alcohol/Substance Use Hx Alcohol Use: No History of Substance Use: reports: None - Social History Usual Living Arrangement: Yes: With Spouse ADL: Independent History of Recent Travel: No Home Medications - Allergies Allergies/Adverse Reactions: Allergies Allergy/AdvReac Type Severity Reaction Status Date / Time No Known Allergies Allergy Verified 11/23/17 10:44 - Home Medications Home Medications: Ambulatory Orders Allopurinol [Zyloprim -] 100 mg PO TID 11/23/17 Amlodipine Besylate 5 mg PO DAILY 11/23/17 Atorvastatin Ca [Lipitor] 40 mg PO HS 11/23/17 Carvedilol 25 mg PO BID 11/23/17 Furosemide 80 mg PO BID 11/23/17 Glimepiride 4 mg PO BID 11/23/17 Sacubitril/Valsartan [Entresto 49 mg-51 mg Tablet] 1 each PO BID 11/23/17 Sitagliptin Phosphate [Januvia] 25 mg PO BID 11/23/17 Warfarin Na [Coumadin] 5 mg PO DAILY 11/23/17 Family Disease History - Family Disease History Family Disease History: Heart Disease: Brother, [place]: Sister Review of Systems Findings/Remarks: Full review of systems obtained, as per HPI and otherwise negative Physical Examination Vital Signs: Vital Signs Temperature 37.5 C 11/23/17 13:04 Pulse Rate 76 11/23/17 13:04 Respiratory Rate 20 11/23/17 13:04 Blood Pressure 122/74 11/23/17 13:04 O2 Sat by Pulse Oximetry (%) 100 11/23/17 13:04 Constitutional: Yes: Anxious, Mild Distress Cardiovascular: Yes: Pulse Irregular, Murmur. No: Tachycardia, Gallop, Rub Respiratory: Yes: Cough, On Nasal O2, Rhonchi, Tachypnea. No: Regular, CTA Bilaterally, Wheezes Gastrointestinal: Yes: Normal Bowel Sounds, Soft. No: Distention, Tenderness Extremities: Yes: WNL Edema: Yes Edema: LLE: 1+, RLE: 1+ Labs: CBC, BMP 11/23/17 11:11 11/23/17 11:11 Imaging - Results Chest X-ray: Report Reviewed, Image Reviewed Problem List - Problems (1) Congestive heart failure Assessment/Plan: -patient comes in with exacerbation -admit to telemetry -cardiology consult -daily weights and I/Os -holding entresto secondary to renal function -IV lasix for diuresis -placed on bipap in the ED secondary to shortness of breath Code(s): I50.9 - HEART FAILURE, UNSPECIFIED Qualifiers: Congestive heart failure type: systolic Congestive heart failure chronicity : acute on chronic Qualified Code(s): I50.23 - Acute on chronic systolic ( congestive) heart failure (2) Anemia Assessment/Plan: -chronic -unchanged -continue iron supplementation -will need stool softener Code(s): D64.9 - ANEMIA, UNSPECIFIED Qualifiers: Anemia type: iron deficiency Iron deficiency anemia type: unspecified iron deficiency Qualified Code(s): D50.9 - Iron deficiency anemia, unspecified (3) Chronic kidney disease Assessment/Plan: -with slight CALOS -suspect aspect of cardiorenal syndrome -diurese with iv lasix -monitor Code(s): N18.9 - CHRONIC KIDNEY DISEASE, UNSPECIFIED Qualifiers: Chronic kidney disease stage: stage 3 (moderate) Qualified Code(s): N18.3 - Chronic kidney disease, stage 3 (moderate) (4) Diabetes mellitus Assessment/Plan: -continue januvia and amaryl -diabetic diet -FSBS and SSI Code(s): E11.9 - TYPE 2 DIABETES MELLITUS WITHOUT COMPLICATIONS Qualifiers: Diabetes mellitus type: type 2 Chronic kidney disease stage: stage 3 ( moderate) (5) Hypercholesteremia Assessment/Plan: -continue statin Code(s): E78.0 - PURE HYPERCHOLESTEROLEMIA * DO NOT USE * (6) Hypertension Assessment/Plan: -continue coreg and norvasc -on iv lasix -hold entresto currently Code(s): I10 - ESSENTIAL (PRIMARY) HYPERTENSION Qualifiers: Hypertension type: essential hypertension Qualified Code(s): I10 - Essential (primary) hypertension (7) Paroxysmal atrial fibrillation Assessment/Plan: -continue coreg -continue coumadin -rate controlled Code(s): I48.0 - PAROXYSMAL ATRIAL FIBRILLATION
[2017-11-23] MEDS ORDERED: HEMOQUE TEST 1 EACH EACH ONE (16:46)
[2017-11-23] MEDS: INSULIN SLIDING SCALE (NOVOLOG) 1 VIAL SQ SCH ×2 (16:50→23:27)
[2017-11-23] MEDS ORDERED: INSULIN (NOVOLOG) ASPART 100 UNITS/ML 10ML VIAL ONE (16:53)
--- NOTE | 2017-11-23 16:55 | CON.CARD ---
Consult Consult Specialty:: Cardiology Referred by:: Shaheed Julio MD Reason for Consultation:: Dyspnea - History of Present Illness Chief Complaint: Dyspnea History of Present Illness: 87 yo man h/o HTN, HLD, CAD post PCI (stent), systolic CHF, Type 2 Diabetes, AFIB (On Coumadin), Lung cancer s/p Lobectomy, Hx of AAA repair, Hx of recurrent anemia requiring tranfusions, aortic stenosis post TAVR, hypothyroidism, CKD presented to the emergency department with shortness of breath with exertion and orthopnea, chest tightness without near or true syncope , palpitations, PND or LE edema, placed on bipap. Admits to dietary indiscretion , reports medical compliance and denies NSAIDs use. Allergies: NKDA Social History: former smoker PCP: Dr. Mercedes Forms Designer: Dr. Tavera ([facility]) - History Source History Provided By: Patient Limitations to Obtaining History: No Limitations - Past Medical History Cardio/Vascular: Yes: AFIB, Aneurysm (s/p repair 1990), CAD ( stents: x1 1995, x2 2004), [place], Other (Vavlular disease: unknown which valve) Pulmonary: Yes: Other (Lung Cancer s/p resection 07/2013 Dr. Cifuentes @ [facility]) Gastrointestinal: Yes: GI Bleed (unclear source) Renal/: Yes: Renal Inusuff - Past Surgical History Past Surgical History: Yes: AAA Repair, Colonoscopy, Hernia Repair, Valve Replacement - Alcohol/Substance Use Hx Alcohol Use: No History of Substance Use: reports: None - Smoking History Smoking history: Never smoked Have you smoked in the past 12 months: No Aproximately how many cigarettes per day: 0 If you are a former smoker, when did you quit?: 1993 - Social History Usual Living Arrangement: With Spouse ADL: Independent History of Recent Travel: No Home Medications - Allergies Allergies/Adverse Reactions: Allergies Allergy/AdvReac Type Severity Reaction Status Date / Time No Known Allergies Allergy Verified 11/23/17 10:44 - Home Medications Home Medications: Ambulatory Orders Allopurinol [Zyloprim -] 100 mg PO TID 11/23/17 Amlodipine Besylate 5 mg PO DAILY 11/23/17 Atorvastatin Ca [Lipitor] 40 mg PO HS 11/23/17 Carvedilol 25 mg PO BID 11/23/17 Furosemide 80 mg PO BID 11/23/17 Glimepiride 4 mg PO BID 11/23/17 Sacubitril/Valsartan [Entresto 49 mg-51 mg Tablet] 1 each PO BID 11/23/17 Sitagliptin Phosphate [Januvia] 25 mg PO BID 11/23/17 Warfarin Na [Coumadin] 5 mg PO DAILY 11/23/17 Family Disease History - Family Disease History Family Disease History: Heart Disease: Brother, CA: Sister Review of Systems - Review of Systems Respiratory: reports: Orthopnea, SOB on Exertion Vital Signs: Vital Signs Temperature 99.5 F 11/23/17 13:04 Pulse Rate 76 11/23/17 16:32 Respiratory Rate 22 11/23/17 16:32 Blood Pressure 122/47 11/23/17 16:32 O2 Sat by Pulse Oximetry (%) 99 11/23/17 16:32 Constitutional: Yes: No Distress, Calm Neck: Yes: Supple Respiratory: Yes: Regular, Diminished Gastrointestinal: Yes: Normal Bowel Sounds, Soft, Abdomen, Obese Cardiovascular: Yes: Regular Rate and Rhythm JVD: No Carotid Bruit: No Heart Sounds: Yes: S1, S2 Murmur: Yes: Systolic Murmur, Grade 1 Edema: No - Other Data Labs, Other Data: CBC, BMP 11/23/17 11:11 11/23/17 11:11 INR, PTT INR 2.09 (0.82-1.09) H 11/23/17 13:26 Troponin, BNP 11/23/17 11/23/17 11:11 13:26 Troponin I 0.09 H D 0.10 H B-Natriuretic Peptide 8092.54 H Troponin, BNP 11/23/17 11/23/17 11:11 13:26 Troponin I 0.09 H D 0.10 H B-Natriuretic Peptide 8092.54 H V-paced @ 80, underlying atrial fibrillation, atrial lead undersensing Imaging - Results Chest X-ray: Report Reviewed (CHF with small bilateral effusions) Problem List - Problems (1) S/P TAVR (transcatheter aortic valve replacement) Code(s): Z95.2 - PRESENCE OF PROSTHETIC HEART VALVE (2) Congestive heart failure Code(s): I50.9 - HEART FAILURE, UNSPECIFIED Qualifiers: Congestive heart failure type: systolic Congestive heart failure chronicity : acute on chronic Qualified Code(s): I50.23 - Acute on chronic systolic ( congestive) heart failure (3) Angina pectoris Code(s): I20.9 - ANGINA PECTORIS, UNSPECIFIED (4) Aortic stenosis Code(s): I35.0 - NONRHEUMATIC AORTIC (VALVE) STENOSIS Qualifiers: Cardiac valve disease etiology: nonrheumatic Qualified Code(s): I35.0 - Nonrheumatic aortic (valve) stenosis (5) Atherosclerotic heart disease Code(s): I25.10 - ATHSCL HEART DISEASE OF [place] CORONARY ARTERY W/O ANG PCTRS Qualifiers: Coronary Disease-Associated Artery/Lesion type: [place] artery [place] vs. transplanted heart: [place] heart Associated angina: without angina Qualified Code(s): I25.10 - Atherosclerotic heart disease of [place] coronary artery without angina pectoris (6) Chronic kidney disease Code(s): N18.9 - CHRONIC KIDNEY DISEASE, UNSPECIFIED Qualifiers: Chronic kidney disease stage: stage 3 (moderate) Qualified Code(s): N18.3 - Chronic kidney disease, stage 3 (moderate) (7) Diabetes mellitus Code(s): E11.9 - TYPE 2 DIABETES MELLITUS WITHOUT COMPLICATIONS Qualifiers: Diabetes mellitus type: type 2 Chronic kidney disease stage: stage 3 ( moderate) (8) Dyspnea on exertion Code(s): R06.09 - OTHER FORMS OF DYSPNEA (9) H/O percutaneous transluminal coronary angioplasty Code(s): Z98.61 - CORONARY ANGIOPLASTY STATUS (10) Hypercholesteremia Code(s): E78.0 - PURE HYPERCHOLESTEROLEMIA * DO NOT USE * (11) Hypertension Code(s): I10 - ESSENTIAL (PRIMARY) HYPERTENSION Qualifiers: Hypertension type: essential hypertension Qualified Code(s): I10 - Essential (primary) hypertension (12) Left ventricular systolic dysfunction Code(s): I51.9 - HEART DISEASE, UNSPECIFIED (13) Paroxysmal atrial fibrillation Code(s): I48.0 - PAROXYSMAL ATRIAL FIBRILLATION (14) Hypothyroidism Code(s): E03.9 - HYPOTHYROIDISM, UNSPECIFIED (15) Anemia Code(s): D64.9 - ANEMIA, UNSPECIFIED Qualifiers: Anemia type: iron deficiency Iron deficiency anemia type: unspecified iron deficiency Qualified Code(s): D50.9 - Iron deficiency anemia, unspecified Assessment/Plan 06/04/2017 cLVH with mod-severe decreased LVEF 30-35%, LUIS DANIEL, bioAVR with mild AR, mild-mod MR, pacer lead 1. Acute on chronic LV systolic failure in context of dietary indiscretion 2. Aortic stenosis post TAVR and Medtronic PPM with atrial undersensing 3. Afib [id number] = 6 with therapeutic INR 4. CAD status post multivessel PCI, angina pectoris 5. GI bleed previous history of AVM, Polyps S/P transfusion 6. Diabetes mellitus 7. Hypercholesteremia 8. Hypertension 9. Acute on CKD due to #1 10. Hypothyroidism 11. Hyperuricemia PLAN: 1. IV diuresis with monitor diuretic response, renal function and electrolytes 2. Continue carvedilol 25 bid, Norvasc 5 qd, Lipitor 40 qhs, Entresto 49/51 bid with monitoring renal recovery and electrolytes, consideration for Jardiance 3. Continue Coumadin and monitor Hgb/Hct and INR closely 4. Echocardiogram to reassess ventricular and valve fxn 4. Given CHF presentation, would reconsider [employer]-D upgrade, patient and family previously hesitant during 09/21/2017 visit, interrogate device 5. Thank you for consultative opportunity
[2017-11-23 17:36] LABS: ALLENS TEST POSITIVE; ARTERIAL BLD GAS O2 SATURATION 98.7 % (90-98.9); ARTERIAL BLOOD GAS BASE EXCESS -2.4 meq/l (-2-2); ARTERIAL BLOOD GAS PCO2 34.5 mmHg (35-45); ARTERIAL BLOOD GAS pH 7.41 (7.35-7.45)
[2017-11-23] MEDS ORDERED: WARFARIN NA 5 MG TABLET (UD) ONE (17:49)
[2017-11-23] MEDS: WARFARIN NA 5 MG TABLET (UD) PO SCH (18:09)
--- NOTE | 2017-11-23 22:22 | RAPID ---
Physical Examination Vital Signs: Vital Signs Temperature 99.5 F 11/23/17 13:04 Pulse Rate 80 11/23/17 21:29 Respiratory Rate 20 11/23/17 18:40 Blood Pressure 124/82 11/23/17 18:40 O2 Sat by Pulse Oximetry (%) 96 11/23/17 21:29 Constitutional: Yes: Calm Eyes: Yes: WNL HENT: Yes: WNL Neck: Yes: WNL Cardiovascular: Yes: WNL Respiratory: Yes: Other (crackles) Gastrointestinal: Yes: WNL Neurological: Yes: Alert, Oriented Labs: CBC, BMP 11/23/17 11:11 11/23/17 11:11 Rapid Response - Rapid Response Assessment: Rapid response was called this evening as pt developed sudden onset SOB and desaturation to 83%. Pt was on BiPAP at the time, with settings 10/5 at rate of 12. Pt was switched to 15/6 and rate of 14 and improved to sat of 96%. Laboratory Tests 11/23/17 17:15 ABG pH 7.41 ABG pCO2 at Pt Temp 34.5 L ABG pO2 at Pt Temp 111.0 H ABG HCO3 21.4 L Repeat CXR, trop, and lasix 20mg IVP stat were ordered. Pt's ABG from earlier in the day was reviewed, WNL without hypercapnia and pH WNL. Will f/u Thank you
[2017-11-23 22:40] LABS: ARTERIAL BLD GAS O2 SATURATION 89.8 % (90-98.9); ARTERIAL BLOOD GAS PCO2 41.6 mmHg (35-45); ARTERIAL BLOOD GAS PO2 61.3 mmHg (68-100); ARTERIAL BLOOD GAS pH 7.33 (7.35-7.45)
[2017-11-23 22:41] LABS: ALLENS TEST POSITIVE
[2017-11-23] MEDS: ALLOPURINOL 100 MG TABLET (FP) PO SCH (23:25)
[2017-11-23] MEDS: ATORVASTATIN CA 40 MG TABLET (FP) PO SCH (23:25)
[2017-11-23] MEDS: CARVEDILOL 25 MG TABLET (FP) PO SCH (23:25)
[2017-11-23 23:29] LABS: URINE APPEARANCE CLEAR; URINE BILIRUBIN NEGATIVE (NEGATIVE); URINE BLOOD NEGATIVE (NEGATIVE); URINE COLOR YELLOW; URINE GLUCOSE (UA) NEGATIVE (NEGATIVE); URINE KETONE NEGATIVE (NEGATIVE); URINE NITRITE NEGATIVE (NEGATIVE); URINE PROTEIN NEGATIVE (NEGATIVE); URINE UROBILINOGEN NEGATIVE mg/dL (0.2-1.0)
[2017-11-23 23:35] LABS: URINE LEUK ESTERASE 3+ (NEGATIVE)
[2017-11-23 23:38] LABS: EPI CELLS RARE /HPF (FEW); URINE HYALINE CAST 53 /lpf; URINE MUCUS RARE
[2017-11-24] MEDS: SACUBITRIL/VALSARTAN 49 MG-51 MG TABLET PO SCH ×4 (00:11→10:31)
[2017-11-24 02:01] VITALS: BMI 22.1
[2017-11-24] MEDS: FUROSEMIDE 40 MG/4 ML INJECTABLE VIAL IVPUSH SCH ×2 (06:05→13:40)
[2017-11-24] MEDS: GLIMEPIRIDE 4 MG TABLET (FP) PO SCH ×2 (06:05→16:55)
[2017-11-24] MEDS: ALLOPURINOL 100 MG TABLET (FP) PO SCH ×3 (06:05→22:33)
[2017-11-24] MEDS: sitaGLIPtin PHOSPHATE 25 MG TABLET (FP) PO SCH (06:06)
[2017-11-24] MEDS: INSULIN SLIDING SCALE (NOVOLOG) 1 VIAL SQ SCH ×4 (06:11→22:35)
[2017-11-24 06:59] LABS: INR 2.65 (0.82-1.09); PROTHROMBIN TIME (PATIENT) 29.9 SEC (9.98-11.88)
[2017-11-24 07:34] LABS: ALBUMIN 2.8 g/dl (3.4-5.0); ANION GAP 12 (8-16); BLOOD UREA NITROGEN 60 mg/dL (7-18); CALCIUM 7.9 mg/dL (8.5-10.1); CHLORIDE 101 mmol/L (98-107); CO2 22 mmol/L (21-32); CREATININE 2.8 mg/dL (0.7-1.3); GLUCOSE,RANDOM 221 mg/dL (74-106); MAGNESIUM 2.2 mg/dL (1.8-2.4); PHOSPHOROUS 4.1 mg/dL (2.5-4.9); POTASSIUM 4.4 mmol/L (3.5-5.1); SGOT/AST 6 U/L (15-37); SGPT/ALT 11 U/L (12-78); SODIUM 135 mmol/L (136-145)
[2017-11-24 07:36] LABS: ALK PHOS 62 U/L (45-117); BILIRUBIN,TOTAL 0.6 mg/dL (0.2-1.0)
[2017-11-24 07:49] LABS: BASO % 0.9 % (0-2.0); HEMATOCRIT 26.2 % (35.4-49); HEMOGLOBIN 7.9 GM/dL (11.7-16.9); LYMPH % 5.4 % (8-40); MCH 23.2 pg (25.7-33.7); MCHC 30.2 g/dl (32.0-35.9); MEAN CELL VOLUME 76.9 fl (80-96); MEAN PLT VOLUME 8.8 fl (7.5-11.1); MONO % 8.1 % (3.8-10.2); NEUT % 85.6 % (42.8-82.8); PLATELET COUNT 211 K/MM3 (134-434); RBC 3.41 M/mm3 (4.00-5.60); RDW 19.3 % (11.9-15.9); WHITE BLOOD COUNT 12.3 K/mm3 (4.0-10.0)
--- NOTE | 2017-11-24 07:54 | PN ---
Progress Note (short form) - Note Progress Note: Chief Complaint: Events noted, notes reviewed, respiratory distress earlier today, denies any chest pain History of Present Illness: Seen and examined on telemetry. Events noted, notes reviewed, respiratory distress earlier today, denies any chest pain Echocardiography dated 06/04/2017 revealed cLVH with moderate-severe decrease LVEF 30-35%, LUIS DANIEL, bioAVR with mild AR, mild-moderate MR, pacer lead Medications: Current Medications Acetaminophen (Tylenol -) 650 mg PO Q4H PRN PRN Reason: PAIN OR FEVER Allopurinol (Zyloprim -) 100 mg PO TID [facility] Last Admin: 11/24/17 13:40 Dose: 100 mg Amlodipine Besylate (Norvasc -) 5 mg PO DAILY [facility] Last Admin: 11/24/17 10:27 Dose: 5 mg Atorvastatin Calcium (Lipitor -) 40 mg PO HS [facility] Last Admin: 11/23/17 23:25 Dose: 40 mg Carvedilol (Coreg -) 25 mg PO BID [facility] Last Admin: 11/24/17 10:27 Dose: 25 mg Furosemide (Lasix Injection -) 40 mg IVPUSH BID@0600,1400 [facility] Last Admin: 11/24/17 13:40 Dose: 40 mg Glimepiride (Amaryl -) 4 mg PO BIDAC [facility] Last Admin: 11/24/17 06:05 Dose: 4 mg Insulin Aspart (Novolog Vial Sliding Scale -) 1 vial SQ ACHS [facility] PRN Reason: Protocol Last Admin: 11/24/17 11:56 Dose: 2 unit Sitagliptin Phosphate (Januvia -) 25 mg PO ACBK [facility] Last Admin: 11/24/17 06:06 Dose: 25 mg Warfarin Sodium (Coumadin -) 5 mg PO DAILY@1800 [facility] Last Admin: 11/23/17 18:09 Dose: 5 mg Review of Systems Cardiovascular: As noted above Respiratory: denies: reports: Cough Gastrointestinal: denies: Nausea, Vomiting, Diarrhea, Constipation or Abdominal Discomfort Musculoskeletal: No Symptoms Reported Endocrine: No Symptoms Reported Vital Signs: Last Vital Signs Temp Pulse Resp BP Pulse Ox 98.0 F 80 20 130/63 95 11/24/17 10:00 11/24/17 10:00 11/24/17 10:00 11/24/17 10:00 11/24/17 10:12 Intake & Output 11/21/17 11/22/17 11/23/17 11/24/17 23:59 23:59 23:59 23:59 Intake Total 240 130 Balance 240 130 Weight 158 lb 9.6 oz 169 lb 6.4 oz Constitutional: No Distress, Calm Neck: Supple Negative JVD No Bruit Respiratory: Diminished Breath Sounds at the Bases Bilaterally Cardiovascular: S1 S2 Regular Rate and Rhythm Grade 2/6 L[place] Gastrointestinal: Soft Benign Normal Bowel Sounds Ext: Trace Edema Labs: CBC, BMP 11/24/17 05:30 11/24/17 05:30 INR, PTT INR 2.65 (0.82-1.09) H 11/24/17 05:30 Assessment/Plan ASSESSMENT: 1. Acute on chronic class II-III NYHA classification LV systolic failure in context of dietary indiscretion 2. Aortic stenosis post TAVR 3. AV block post Medtronic's PPM 4. Paroxysmal atrial fibrillation [id number] score of 6 with therapeutic INR 5. CAD status post multi-vessel PCI, angina pectoris, stable 6. HTN 7. DM 8. Hypercholesteremia 9. Hypothyroidism 10. History of GI bleed, previous history of AVM, S/P transfusion 11. Acute on CKD due to #1 12. Hyperuricemia/gout PLAN: 1. IV Lasix with close monitoring of renal function and electrolytes 2. Continue Carvedilol 3. Continue Norvasc 4. Resume Entresto once renal function stabilized and Creatinine at baseline 5. Continue Coumadin with close monitoring of Hgb, maintain Hg equal or > 8.0 and close monitoring of INR maintain INR between 2-3 6. Echocardiography to reassess left ventricular systolic function and the above noted valvular pathologies Tolu Tavera MD
[2017-11-24] MEDS: CARVEDILOL 25 MG TABLET (FP) PO SCH ×2 (10:27→22:33)
[2017-11-24] MEDS: amLODIPine BESYLATE 5 MG TABLET (FP) PO SCH (10:27)
--- NOTE | 2017-11-24 12:11 | PN ---
Progress Note, Physician Chief Complaint: Mr Moran says his breathing is better now that he is off the BiPAP but still with some shortness of breath. Chronic cough unchanged. No cp or n/v. - Current Medication List Current Medications: Active Medications Acetaminophen (Tylenol -) 650 mg PO Q4H PRN PRN Reason: PAIN OR FEVER Allopurinol (Zyloprim -) 100 mg PO TID [facility] Last Admin: 11/24/17 06:05 Dose: 100 mg Amlodipine Besylate (Norvasc -) 5 mg PO DAILY [facility] Last Admin: 11/24/17 10:27 Dose: 5 mg Atorvastatin Calcium (Lipitor -) 40 mg PO HS [facility] Last Admin: 11/23/17 23:25 Dose: 40 mg Carvedilol (Coreg -) 25 mg PO BID [facility] Last Admin: 11/24/17 10:27 Dose: 25 mg Furosemide (Lasix Injection -) 40 mg IVPUSH BID@0600,1400 [facility] Last Admin: 11/24/17 06:05 Dose: 40 mg Glimepiride (Amaryl -) 4 mg PO BIDAC [facility] Last Admin: 11/24/17 06:05 Dose: 4 mg Insulin Aspart (Novolog Vial Sliding Scale -) 1 vial SQ ACHS [facility] PRN Reason: Protocol Last Admin: 11/24/17 11:56 Dose: 2 unit Sitagliptin Phosphate (Januvia -) 25 mg PO ACBK [facility] Last Admin: 11/24/17 06:06 Dose: 25 mg Warfarin Sodium (Coumadin -) 5 mg PO DAILY@1800 [facility] Last Admin: 11/23/17 18:09 Dose: 5 mg - Objective Vital Signs: Vital Signs Temperature 36.7 C 11/24/17 10:00 Pulse Rate 80 11/24/17 10:00 Respiratory Rate 20 11/24/17 10:00 Blood Pressure 130/63 11/24/17 10:00 O2 Sat by Pulse Oximetry (%) 95 11/24/17 10:12 Constitutional: Yes: Calm, Mild Distress Cardiovascular: Yes: Pulse Irregular. No: Tachycardia, Gallop, Murmur, Rub Respiratory: Yes: Regular, On Nasal O2, Rhonchi (much improved). No: CTA Bilaterally, Rales, Wheezes Gastrointestinal: Yes: Normal Bowel Sounds, Soft. No: Distention, Tenderness Extremities: Yes: WNL Edema: No Labs: CBC, BMP 11/24/17 05:30 11/24/17 05:30 INR, PTT INR 2.65 (0.82-1.09) H 11/24/17 05:30 Problem List - Problems (1) Congestive heart failure Code(s): I50.9 - HEART FAILURE, UNSPECIFIED Qualifiers: Congestive heart failure type: systolic Congestive heart failure chronicity : acute on chronic Qualified Code(s): I50.23 - Acute on chronic systolic ( congestive) heart failure (2) Anemia Code(s): D64.9 - ANEMIA, UNSPECIFIED Qualifiers: Anemia type: iron deficiency Iron deficiency anemia type: unspecified iron deficiency Qualified Code(s): D50.9 - Iron deficiency anemia, unspecified (3) Chronic kidney disease Code(s): N18.9 - CHRONIC KIDNEY DISEASE, UNSPECIFIED Qualifiers: Chronic kidney disease stage: stage 3 (moderate) Qualified Code(s): N18.3 - Chronic kidney disease, stage 3 (moderate) (4) Diabetes mellitus Code(s): E11.9 - TYPE 2 DIABETES MELLITUS WITHOUT COMPLICATIONS Qualifiers: Diabetes mellitus type: type 2 Chronic kidney disease stage: stage 3 ( moderate) (5) Hypercholesteremia Code(s): E78.0 - PURE HYPERCHOLESTEROLEMIA * DO NOT USE * (6) Hypertension Code(s): I10 - ESSENTIAL (PRIMARY) HYPERTENSION Qualifiers: Hypertension type: essential hypertension Qualified Code(s): I10 - Essential (primary) hypertension (7) Paroxysmal atrial fibrillation Code(s): I48.0 - PAROXYSMAL ATRIAL FIBRILLATION (8) ILD (interstitial lung disease) Code(s): J84.9 - INTERSTITIAL PULMONARY DISEASE, UNSPECIFIED (9) Acute respiratory failure Code(s): J96.00 - ACUTE RESPIRATORY FAILURE, UNSP W HYPOXIA OR HYPERCAPNIA Assessment/Plan (1) Congestive heart failure with acute respiratory failure Assessment/Plan: -case d/w Dr Tavera -able to titrate off of bipap, continue supplemental oxygen -lasix 40mg IV bid Code(s): I50.9 - HEART FAILURE, UNSPECIFIED Qualifiers: Congestive heart failure type: systolic Congestive heart failure chronicity : acute on chronic Qualified Code(s): I50.23 - Acute on chronic systolic ( congestive) heart failure (2) Anemia Assessment/Plan: -chronic -unchanged -continue iron supplementation -will need stool softener Code(s): D64.9 - ANEMIA, UNSPECIFIED Qualifiers: Anemia type: iron deficiency Iron deficiency anemia type: unspecified iron deficiency Qualified Code(s): D50.9 - Iron deficiency anemia, unspecified (3) Chronic kidney disease Assessment/Plan: -slightly worsened today -secondary to diuresis -monitor -may need to decrease IV lasix -if worsens consult nephrology Code(s): N18.9 - CHRONIC KIDNEY DISEASE, UNSPECIFIED Qualifiers: Chronic kidney disease stage: stage 3 (moderate) Qualified Code(s): N18.3 - Chronic kidney disease, stage 3 (moderate) (4) Diabetes mellitus Assessment/Plan: -continue januvia and amaryl -diabetic diet -FSBS and SSI -check HgbA1c -begin levemir while in hospital Code(s): E11.9 - TYPE 2 DIABETES MELLITUS WITHOUT COMPLICATIONS Qualifiers: Diabetes mellitus type: type 2 Chronic kidney disease stage: stage 3 ( moderate) (5) Hypercholesteremia Assessment/Plan: -continue statin Code(s): E78.0 - PURE HYPERCHOLESTEROLEMIA * DO NOT USE * (6) Hypertension Assessment/Plan: -continue coreg and norvasc -on iv lasix -hold entresto currently Code(s): I10 - ESSENTIAL (PRIMARY) HYPERTENSION Qualifiers: Hypertension type: essential hypertension Qualified Code(s): I10 - Essential (primary) hypertension (7) Paroxysmal atrial fibrillation Assessment/Plan: -continue coreg -continue coumadin -rate controlled Code(s): I48.0 - PAROXYSMAL ATRIAL FIBRILLATION (8) ILD -patient with history of ILD as well -may be exacerbated with CHF -will give short course prednisone
[2017-11-24] MEDS ORDERED: DOCUSATE SODIUM 100 MG CAPSULE (FP) PO PRN (16:26)
[2017-11-24] MEDS: FERROUS SO4 325 MG TABLET (FP) PO SCH (16:56)
[2017-11-24] MEDS: predniSONE 20 MG TABLET (UD) PO SCH (16:56)
[2017-11-24] MEDS: WARFARIN NA 5 MG TABLET (UD) PO SCH (17:59)
[2017-11-24] MEDS ORDERED: FUROSEMIDE 40 MG/4 ML INJECTABLE VIAL IVPUSH ONE (18:00)
[2017-11-24] MEDS: ATORVASTATIN CA 40 MG TABLET (FP) PO SCH (22:33)
[2017-11-24] MEDS: INSULIN DETEMIR 100 UNITS/ML MDV SQ SCH (22:34)
[2017-11-24] MEDS: POLYETHYLENE GLYCOL 3350 119 GM BTL PO SCH (22:40)
--- NOTE | 2017-11-25 01:05 | RAPID ---
Physical Examination Vital Signs: Vital Signs Temperature 97.7 F 11/24/17 17:00 Pulse Rate 80 11/24/17 17:00 Respiratory Rate 26 H 11/24/17 17:00 Blood Pressure 121/59 11/24/17 17:00 O2 Sat by Pulse Oximetry (%) 93 L 11/24/17 16:56 Rapid response called at 12:45 am 11/25/58. On entering room, pt was being bagged. Per nurses, pt pulled off his NIPPV mask and desatted to the 30s. Initial O2 on bag mask was 60%. NIPPV was replaced, FiO2 increased from 60 to 100% Ipap 13 Epap 6. O2 sats increased to 90%. Pt found to be confused, with pulses, and with poor air entry b/l. Pt is an 87 y/o M with H lung CA s/p resection with extensive cardiac history who came to hospital for SOB this visit. Pt had rapid response called last night as well. Ordered -Lasix 100 -ABG -CXR -brannon (pt has had decreased urine output). Initial output 25-40ml. Pt stable, afebrile, in NAD. BP 146/68, Sat 95% Labs: CBC, BMP 11/24/17 05:30 11/24/17 05:30
[2017-11-25] MEDS ORDERED: FUROSEMIDE 100 MG/10 ML INJECTABLE VIAL IVPUSH ONE (01:30)
[2017-11-25 01:43] LABS: ALLENS TEST POSITIVE; ARTERIAL BLD GAS O2 SATURATION 95.2 % (90-98.9); ARTERIAL BLOOD GAS BASE EXCESS -5.6 meq/l (-2-2); ARTERIAL BLOOD GAS PCO2 38.8 mmHg (35-45); ARTERIAL BLOOD GAS PO2 78.5 mmHg (68-100); ARTERIAL BLOOD GAS pH 7.32 (7.35-7.45)
[2017-11-25 07:11] LABS: BASO % 0.5 % (0-2.0); HEMATOCRIT 27.6 % (35.4-49); HEMOGLOBIN 8.7 GM/dL (11.7-16.9); MCH 23.8 pg (25.7-33.7); MCHC 31.4 g/dl (32.0-35.9); MEAN CELL VOLUME 75.7 fl (80-96); MEAN PLT VOLUME 8.5 fl (7.5-11.1); MONO % 2.7 % (3.8-10.2); NEUT % 93.8 % (42.8-82.8); PLATELET COUNT 229 K/MM3 (134-434); RBC 3.65 M/mm3 (4.00-5.60); RDW 19.3 % (11.9-15.9); WHITE BLOOD COUNT 10.4 K/mm3 (4.0-10.0)
[2017-11-25 07:22] LABS: INR 3.65 (0.82-1.09); PROTHROMBIN TIME (PATIENT) 41.3 SEC (9.98-11.88)
[2017-11-25] MEDS: FUROSEMIDE 40 MG/4 ML INJECTABLE VIAL IVPUSH SCH (07:22)
[2017-11-25] MEDS: ALLOPURINOL 100 MG TABLET (FP) PO SCH ×3 (07:23→21:54)
[2017-11-25] MEDS: sitaGLIPtin PHOSPHATE 25 MG TABLET (FP) PO SCH (07:23)
[2017-11-25] MEDS: INSULIN SLIDING SCALE (NOVOLOG) 1 VIAL SQ SCH ×4 (07:23→22:07)
[2017-11-25] MEDS: GLIMEPIRIDE 4 MG TABLET (FP) PO SCH ×2 (07:23→17:11)
[2017-11-25 07:50] LABS: ANION GAP 14 (8-16); BLOOD UREA NITROGEN 79 mg/dL (7-18); CHLORIDE 97 mmol/L (98-107); CO2 23 mmol/L (21-32); GLUCOSE,RANDOM 253 mg/dL (74-106); MAGNESIUM 2.5 mg/dL (1.8-2.4); PHOSPHOROUS 5.2 mg/dL (2.5-4.9); POTASSIUM 5.1 mmol/L (3.5-5.1); SODIUM 134 mmol/L (136-145)
[2017-11-25 07:51] LABS: CALCIUM 8.9 mg/dL (8.5-10.1); CREATININE 3.3 mg/dL (0.7-1.3)
[2017-11-25] MEDS: FERROUS SO4 325 MG TABLET (FP) PO SCH ×3 (09:30→17:11)
[2017-11-25] MEDS: amLODIPine BESYLATE 5 MG TABLET (FP) PO SCH (09:30)
[2017-11-25] MEDS: predniSONE 20 MG TABLET (UD) PO SCH (09:30)
[2017-11-25] MEDS: CARVEDILOL 25 MG TABLET (FP) PO SCH ×2 (09:30→21:55)
[2017-11-25] MEDS: POLYETHYLENE GLYCOL 3350 119 GM BTL PO SCH ×2 (09:31→21:55)
--- NOTE | 2017-11-25 11:00 | EKG ---
Test Reason : Blood Pressure : / mmHG Vent. Rate : 088 BPM Atrial Rate : 088 BPM P-R Int : 000 ms QRS Dur : 164 ms QT Int : 454 ms P-R-T Axes : 000 011 124 degrees QTc Int : 549 ms SINUS RHYTHM WITH 1ST DEGREE A-V BLOCK LEFT BUNDLE BRANCH BLOCK ABNORMAL ECG WHEN COMPARED WITH ECG OF 23-NOV-2017 10:46, MI INTERVAL HAS DECREASED Confirmed by SUNDEEP ROTHMAN, SPENSER ([id number]) on 11/25/2017 11:00:03 AM Referred By: Confirmed By:SPENSER URBANO MD
--- NOTE | 2017-11-25 11:07 | PN ---
Progress Note, Physician History of Present Illness: Patient has increased work of breathing earlier today, placed on bipap, oliguric , given extra dose of Lasix. - Current Medication List Current Medications: Active Medications Acetaminophen (Tylenol -) 650 mg PO Q4H PRN PRN Reason: PAIN OR FEVER Allopurinol (Zyloprim -) 100 mg PO TID [facility] Last Admin: 11/25/17 07:23 Dose: 100 mg Amlodipine Besylate (Norvasc -) 5 mg PO DAILY [facility] Last Admin: 11/25/17 09:30 Dose: 5 mg Atorvastatin Calcium (Lipitor -) 40 mg PO HS [facility] Last Admin: 11/24/17 22:33 Dose: 40 mg Carvedilol (Coreg -) 25 mg PO BID [facility] Last Admin: 11/25/17 09:30 Dose: 25 mg Docusate Sodium (Colace -) 100 mg PO BID PRN PRN Reason: CONSTIPATION Ferrous Sulfate (Feosol -) 325 mg PO TIDCM [facility] Last Admin: 11/25/17 09:30 Dose: 325 mg Furosemide (Lasix Injection -) 40 mg IVPUSH BID@0600,1400 [facility] Last Admin: 11/25/17 07:22 Dose: 40 mg Glimepiride (Amaryl -) 4 mg PO BIDAC [facility] Last Admin: 11/25/17 07:23 Dose: 4 mg Insulin Aspart (Novolog Vial Sliding Scale -) 1 vial SQ [facility] PRN Reason: Protocol Last Admin: 11/25/17 07:23 Dose: 4 unit Insulin Detemir (Levemir Vial) [address] [facility] Last Admin: 11/24/17 22:34 Dose: 10 units Polyethylene Glycol (Miralax (For Daily Use) -) 17 gm PO BID [facility] Last Admin: 11/25/17 09:31 Dose: 17 gm Prednisone (Deltasone -) 60 mg PO DAILY [facility] Last Admin: 11/25/17 09:30 Dose: 60 mg Sitagliptin Phosphate (Januvia -) 25 mg PO ACBK [facility] Last Admin: 11/25/17 07:23 Dose: 25 mg Warfarin Sodium (Coumadin -) 5 mg PO DAILY@1800 [facility] Last Admin: 11/24/17 17:59 Dose: 5 mg - Objective Vital Signs: Vital Signs Temperature 97.4 F L 11/25/17 05:00 Pulse Rate 82 11/25/17 05:00 Respiratory Rate 25 H 11/25/17 05:00 Blood Pressure 142/63 11/25/17 05:00 O2 Sat by Pulse Oximetry (%) 97 11/25/17 02:37 Constitutional: Yes: No Distress, Calm, Thin Neck: Yes: Supple Cardiovascular: Yes: Regular Rate and Rhythm Respiratory: Yes: Regular, Diminished, On BiPap Gastrointestinal: Yes: Soft, Hypoactive Bowel Sounds Edema: No (Warm) Labs: CBC, BMP 11/25/17 05:35 11/25/17 05:35 INR, PTT INR 3.65 (0.82-1.09) H D 11/25/17 05:35 - ....Imaging Chest X-ray: Report Reviewed (Increased CHF or effusions) EKG: Report Reviewed (NSR @ 88 LBBB) Problem List - Problems (1) S/P TAVR (transcatheter aortic valve replacement) Code(s): Z95.2 - PRESENCE OF PROSTHETIC HEART VALVE (2) Congestive heart failure Code(s): I50.9 - HEART FAILURE, UNSPECIFIED Qualifiers: Congestive heart failure type: systolic Congestive heart failure chronicity : acute on chronic Qualified Code(s): I50.23 - Acute on chronic systolic ( congestive) heart failure (3) Angina pectoris Code(s): I20.9 - ANGINA PECTORIS, UNSPECIFIED (4) Aortic stenosis Code(s): I35.0 - NONRHEUMATIC AORTIC (VALVE) STENOSIS Qualifiers: Cardiac valve disease etiology: nonrheumatic Qualified Code(s): I35.0 - Nonrheumatic aortic (valve) stenosis (5) Atherosclerotic heart disease Code(s): I25.10 - ATHSCL HEART DISEASE OF [place] CORONARY ARTERY W/O ANG PCTRS Qualifiers: Coronary Disease-Associated Artery/Lesion type: [place] artery [place] vs. transplanted heart: [place] heart Associated angina: without angina Qualified Code(s): I25.10 - Atherosclerotic heart disease of [place] coronary artery without angina pectoris (6) Chronic kidney disease Code(s): N18.9 - CHRONIC KIDNEY DISEASE, UNSPECIFIED Qualifiers: Chronic kidney disease stage: stage 3 (moderate) Qualified Code(s): N18.3 - Chronic kidney disease, stage 3 (moderate) (7) Diabetes mellitus Code(s): E11.9 - TYPE 2 DIABETES MELLITUS WITHOUT COMPLICATIONS Qualifiers: Diabetes mellitus type: type 2 Chronic kidney disease stage: stage 3 ( moderate) (8) Dyspnea on exertion Code(s): R06.09 - OTHER FORMS OF DYSPNEA (9) H/O percutaneous transluminal coronary angioplasty Code(s): Z98.61 - CORONARY ANGIOPLASTY STATUS (10) Hypercholesteremia Code(s): E78.0 - PURE HYPERCHOLESTEROLEMIA * DO NOT USE * (11) Hypertension Code(s): I10 - ESSENTIAL (PRIMARY) HYPERTENSION Qualifiers: Hypertension type: essential hypertension Qualified Code(s): I10 - Essential (primary) hypertension (12) Left ventricular systolic dysfunction Code(s): I51.9 - HEART DISEASE, UNSPECIFIED (13) Paroxysmal atrial fibrillation Code(s): I48.0 - PAROXYSMAL ATRIAL FIBRILLATION (14) Hypothyroidism Code(s): E03.9 - HYPOTHYROIDISM, UNSPECIFIED (15) Anemia Code(s): D64.9 - ANEMIA, UNSPECIFIED Qualifiers: Anemia type: iron deficiency Iron deficiency anemia type: unspecified iron deficiency Qualified Code(s): D50.9 - Iron deficiency anemia, unspecified Assessment/Plan 06/04/2017 cLVH with mod-severe decreased LVEF 30-35%, LUIS DANIEL, bioAVR with mild AR, mild-mod MR, pacer lead 1. Acute on chronic LV systolic failure in context of dietary indiscretion 2. Aortic stenosis post TAVR and Medtronic PPM with atrial undersensing 3. Afib [id number] = 6 with supratherapeutic INR 4. CAD status post multivessel PCI, angina pectoris 5. GI bleed previous history of AVM, Polyps S/P transfusion 6. Diabetes mellitus 7. Hypercholesteremia 8. Hypertension 9. Acute on CKD with oliguria due to #1 10. Hypothyroidism 11. Hyperuricemia PLAN: 1. Initiate inotropic diuresis with monitor diuretic response, renal function and electrolytes 2. Continue carvedilol 25 bid, Norvasc 5 qd, Lipitor 40 qhs, Entresto 49/51 bid held pending renal fxn stabilization 3. Hold Coumadin and monitor Hgb/Hct and INR closely 4. Will discuss with Dr. Caleb Smith CHF/Txplt and [facility] for possible transfer to [facility] for RHC guidance 5. Given CHF presentation, would reconsider LIFE EDUCATOR-D upgrade, patient and family previously hesitant during 09/21/2017 visit, interrogate device
--- NOTE | 2017-11-25 11:30 | PN ---
Progress Note, Physician Chief Complaint: Mr Moran says ana wants to go home. Complains that the mask is uncomfortable. Says he is still short of breath but thinks he will be fine on home oxygen. Denies cp and n/v. - Current Medication List Current Medications: Active Medications Acetaminophen (Tylenol -) 650 mg PO Q4H PRN PRN Reason: PAIN OR FEVER Allopurinol (Zyloprim -) 100 mg PO TID [facility] Last Admin: 11/25/17 07:23 Dose: 100 mg Amlodipine Besylate (Norvasc -) 5 mg PO DAILY [facility] Last Admin: 11/25/17 09:30 Dose: 5 mg Atorvastatin Calcium (Lipitor -) 40 mg PO HS [facility] Last Admin: 11/24/17 22:33 Dose: 40 mg Carvedilol (Coreg -) 25 mg PO BID [facility] Last Admin: 11/25/17 09:30 Dose: 25 mg Docusate Sodium (Colace -) 100 mg PO BID PRN PRN Reason: CONSTIPATION Ferrous Sulfate (Feosol -) 325 mg PO TIDCM [facility] Last Admin: 11/25/17 09:30 Dose: 325 mg Furosemide (Lasix Injection -) 40 mg IVPUSH BID@0600,1400 [facility] Last Admin: 11/25/17 07:22 Dose: 40 mg Glimepiride (Amaryl -) 4 mg PO BIDAC [facility] Last Admin: 11/25/17 07:23 Dose: 4 mg Insulin Aspart (Novolog Vial Sliding Scale -) 1 vial SQ [facility] PRN Reason: Protocol Last Admin: 11/25/17 07:23 Dose: 4 unit Insulin Detemir (Levemir Vial) 10 units SQ [facility] Last Admin: 11/24/17 22:34 Dose: 10 units Polyethylene Glycol (Miralax (For Daily Use) -) 17 gm PO BID [facility] Last Admin: 11/25/17 09:31 Dose: 17 gm Prednisone (Deltasone -) 60 mg PO DAILY [facility] Last Admin: 11/25/17 09:30 Dose: 60 mg Sitagliptin Phosphate (Januvia -) 25 mg PO ACBK [facility] Last Admin: 11/25/17 07:23 Dose: 25 mg Warfarin Sodium (Coumadin -) 5 mg PO DAILY@1800 [facility] Last Admin: 11/24/17 17:59 Dose: 5 mg - Objective Vital Signs: Vital Signs Temperature 36.3 C L 11/25/17 09:00 Pulse Rate 83 11/25/17 09:00 Respiratory Rate 24 11/25/17 09:00 Blood Pressure 110/65 11/25/17 09:00 O2 Sat by Pulse Oximetry (%) 100 11/25/17 09:00 Constitutional: Yes: No Distress, Calm Cardiovascular: Yes: Pulse Irregular. No: Gallop, Murmur, Rub Respiratory: Yes: On BiPap, Rhonchi, Tachypnea. No: Regular, CTA Bilaterally, Rales, Wheezes Gastrointestinal: Yes: Normal Bowel Sounds, Soft. No: Distention, Tenderness Extremities: Yes: WNL Edema: Yes Edema: LLE: 1+, RLE: 1+ Labs: CBC, BMP 11/25/17 05:35 11/25/17 05:35 INR, PTT INR 3.65 (0.82-1.09) H D 11/25/17 05:35 Problem List - Problems (1) Congestive heart failure Code(s): I50.9 - HEART FAILURE, UNSPECIFIED Qualifiers: Congestive heart failure type: systolic Congestive heart failure chronicity : acute on chronic Qualified Code(s): I50.23 - Acute on chronic systolic ( congestive) heart failure (2) Anemia Code(s): D64.9 - ANEMIA, UNSPECIFIED Qualifiers: Anemia type: iron deficiency Iron deficiency anemia type: unspecified iron deficiency Qualified Code(s): D50.9 - Iron deficiency anemia, unspecified (3) Chronic kidney disease Code(s): N18.9 - CHRONIC KIDNEY DISEASE, UNSPECIFIED Qualifiers: Chronic kidney disease stage: stage 3 (moderate) Qualified Code(s): N18.3 - Chronic kidney disease, stage 3 (moderate) (4) Diabetes mellitus Code(s): E11.9 - TYPE 2 DIABETES MELLITUS WITHOUT COMPLICATIONS Qualifiers: Diabetes mellitus type: type 2 Chronic kidney disease stage: stage 3 ( moderate) (5) Hypercholesteremia Code(s): E78.0 - PURE HYPERCHOLESTEROLEMIA * DO NOT USE * (6) Hypertension Code(s): I10 - ESSENTIAL (PRIMARY) HYPERTENSION Qualifiers: Hypertension type: essential hypertension Qualified Code(s): I10 - Essential (primary) hypertension (7) Paroxysmal atrial fibrillation Code(s): I48.0 - PAROXYSMAL ATRIAL FIBRILLATION (8) ILD (interstitial lung disease) Code(s): J84.9 - INTERSTITIAL PULMONARY DISEASE, UNSPECIFIED (9) Acute respiratory failure Code(s): J96.00 - ACUTE RESPIRATORY FAILURE, UNSP W HYPOXIA OR HYPERCAPNIA Assessment/Plan (1) Congestive heart failure with acute respiratory failure Assessment/Plan: -case d/w Dr Burroughs -worsening -place on milrinone and lasix gtt -awaiting transfer -respiratory failure appears mainly cardiac, will stop prednisone as not helping and only increasing glucose levels Code(s): I50.9 - HEART FAILURE, UNSPECIFIED Qualifiers: Congestive heart failure type: systolic Congestive heart failure chronicity : acute on chronic Qualified Code(s): I50.23 - Acute on chronic systolic ( congestive) heart failure (2) Anemia Assessment/Plan: -stable -continue iron supplementations as tolerated and stool softeners Code(s): D64.9 - ANEMIA, UNSPECIFIED Qualifiers: Anemia type: iron deficiency Iron deficiency anemia type: unspecified iron deficiency Qualified Code(s): D50.9 - Iron deficiency anemia, unspecified (3) Chronic kidney disease Assessment/Plan: -worsened today -cardiorenal syndrome -nephrology consult Code(s): N18.9 - CHRONIC KIDNEY DISEASE, UNSPECIFIED Qualifiers: Chronic kidney disease stage: stage 3 (moderate) Qualified Code(s): N18.3 - Chronic kidney disease, stage 3 (moderate) (4) Diabetes mellitus Assessment/Plan: -Hgb A1c checked -continue januvia and amaryl -continue levemir currently, may not need as an outpatient Code(s): E11.9 - TYPE 2 DIABETES MELLITUS WITHOUT COMPLICATIONS Qualifiers: Diabetes mellitus type: type 2 Chronic kidney disease stage: stage 3 ( moderate) (5) Hypercholesteremia Assessment/Plan: -continue statin Code(s): E78.0 - PURE HYPERCHOLESTEROLEMIA * DO NOT USE * (6) Hypertension Assessment/Plan: -may need to hold coreg and norvasc while on lasix gtt Code(s): I10 - ESSENTIAL (PRIMARY) HYPERTENSION Qualifiers: Hypertension type: essential hypertension Qualified Code(s): I10 - Essential (primary) hypertension (7) Paroxysmal atrial fibrillation Assessment/Plan: -continue coreg currently -hold coumadin -rate controlled Code(s): I48.0 - PAROXYSMAL ATRIAL FIBRILLATION (8) ILD -patient with history of ILD as well -will stop prednisone as above
[2017-11-25] MEDS ORDERED: FUROSEMIDE 40 MG/4 ML INJECTABLE VIAL IVPUSH ONE (11:40)
[2017-11-25] MEDS ORDERED: FUROSEMIDE INJECTION 100 MG in DEXTROSE 5%-WATER - 90 ML IVPB SCH (11:45)
--- NOTE | 2017-11-25 12:46 | CONSULT ---
Consult - text type - Consultation Consultation Note: Renal consult for CALOS on CKD This is 87 year old gentlemn with PMhx of Systolic HF (LVEF is 20%), CKD ( baseline Cr 1.7-2), CAD, Hypertension, HLD, Afib on Coumadin, Hx of AAA repair, Anemia, AVR who presented with SOB/TILLMAN and admitted for CHF exacerbation with CALOS during hospitalization. Cr trend as inpatient: 11/23/17 11/24/17 11/25/17 11:11 05:30 05:35 Creatinine 2.5 H 2.8 H 3.3 H IV diuresis attempted with IV lasix. Pt making urine but no improvement in clinical status. Brannon in place. No contrast or NSIAD exposure. No flank pain, hematuria. Pt was on ARB at home and earlier during admission. No ANDREWS, CP, Abd pain, N/V/D. PMHx: as above Allergies: NKDA Family hx: NC Social hx: No Tobacco Home Medications Medication Instructions Recorded Allopurinol [Zyloprim -] 100 mg PO TID 11/23/17 Amlodipine Besylate 5 mg PO DAILY 11/23/17 Atorvastatin Ca [Lipitor] 40 mg PO HS 11/23/17 Carvedilol 25 mg PO BID 11/23/17 Furosemide 80 mg PO BID 11/23/17 Glimepiride 4 mg PO BID 11/23/17 Sacubitril/Valsartan [Entresto 49 1 each PO BID 11/23/17 mg-51 mg Tablet] Sitagliptin Phosphate [Januvia] 25 mg PO BID 11/23/17 Warfarin Na [Coumadin] 5 mg PO DAILY 11/23/17 Vital Signs Temperature 97.3 F L 11/25/17 09:00 Pulse Rate 83 11/25/17 09:00 Respiratory Rate 24 11/25/17 09:00 Blood Pressure 110/65 11/25/17 09:00 O2 Sat by Pulse Oximetry (%) 100 11/25/17 09:00 Intake & Output 11/22/17 11/23/17 11/24/17 11/25/17 23:59 23:59 23:59 23:59 Intake Total 240 730 Output Total 200 270 Balance 240 530 -270 Weight 71.94 kg 76.839 kg NAD on BIPAP NC/AT, Neck supple, mild JVD RRR, no M/R + rales at lung bases Trace LE edema CBC, BMP 11/25/17 05:35 11/25/17 05:35 Laboratory Tests 11/25/17 11/25/17 05:35 05:35 Hemoglobin A1c % 7.1 H D Calcium 8.9 Phosphorus 5.2 H D Magnesium 2.5 H Current Medications Acetaminophen (Tylenol -) 650 mg PO Q4H PRN PRN Reason: PAIN OR FEVER Allopurinol (Zyloprim -) 100 mg PO TID [facility] Last Admin: 11/25/17 07:23 Dose: 100 mg Amlodipine Besylate (Norvasc -) 5 mg PO DAILY [facility] Last Admin: 11/25/17 09:30 Dose: 5 mg Atorvastatin Calcium (Lipitor -) 40 mg PO HS [facility] Last Admin: 11/24/17 22:33 Dose: 40 mg Carvedilol (Coreg -) 25 mg PO BID [facility] Last Admin: 11/25/17 09:30 Dose: 25 mg Docusate Sodium (Colace -) 100 mg PO BID PRN PRN Reason: CONSTIPATION Ferrous Sulfate (Feosol -) 325 mg PO TIDCM [facility] Last Admin: 11/25/17 09:30 Dose: 325 mg Furosemide (Lasix Injection -) 40 mg IVPUSH ONCE ONE Stop: 11/25/17 11:41 Glimepiride (Amaryl -) 4 mg PO BIDAC [facility] Last Admin: 11/25/17 07:23 Dose: 4 mg Furosemide 100 mg/ Dextrose 100 mls @ 5 mls/hr IVPB TITR [facility] PRN Reason: 5 MG/HR Milrinone Lactate/Dextrose (Milrinone 20mg/100ml Ivpb -) 20,000 mcg in 100 mls @ 8.644 mls/hr IVPB TITR NIK; 0.375 MCG/KG/MIN PRN Reason: Protocol Insulin Aspart (Novolog Vial Sliding Scale -) 1 vial SQ [facility] PRN Reason: Protocol Last Admin: 11/25/17 12:13 Dose: 4 unit Insulin Detemir (Levemir Vial) 10 units SQ [facility] Last Admin: 11/24/17 22:34 Dose: 10 units Polyethylene Glycol (Miralax (For Daily Use) -) 17 gm PO BID [facility] Last Admin: 11/25/17 09:31 Dose: 17 gm Prednisone (Deltasone -) 60 mg PO DAILY [facility] Last Admin: 11/25/17 09:30 Dose: 60 mg Sitagliptin Phosphate (Januvia -) 25 mg PO ACBK [facility] Last Admin: 11/25/17 07:23 Dose: 25 mg Warfarin Sodium (Coumadin -) 5 mg PO DAILY@1800 [facility] Last Admin: 11/24/17 17:59 Dose: 5 mg 87 year old gentlemn with PMhx of Systolic HF (LVEF is 20%), CKD (baseline Cr 1.7-2), CAD, Hypertension, HLD, Afib on Coumadin, Hx of AAA repair, Anemia, AVR who presented with SOB/TILLMAN and admitted for CHF exacerbation with CALOS during hospitalization. #Acute on Chronic Renal Insufficiency in setting of systolic HF Likely etiology is cardio-renal syndrome agree with starting milrinone to improve cardiac output continue Lasix as drip trend BUN/Cr check urine studies for FeUrea brannon in place, monitor urine output #Acute on chronic HF continue management per cardiology awaiting transfer to [facility] #Hypertension on coreg and amlodpine consider down titrating meds if BP drops with diuresis #Anemia trend cbc check iron studies, may benifit from IV iron or LOIS Thank you Sandro Beard DO
[2017-11-25] MEDS ORDERED: FUROSEMIDE 40 MG/4 ML INJECTABLE VIAL ONE (13:32)
[2017-11-25] MEDS: MILRINONE 20MG/100ML IVPB - 20,000 MCG/100 ML ML IVPB SCH (13:35)
[2017-11-25 15:16] LABS: URINE APPEARANCE SLCLOUDY; URINE BILIRUBIN NEGATIVE (NEGATIVE); URINE BLOOD 2+ (NEGATIVE); URINE COLOR YELLOW; URINE GLUCOSE (UA) NEGATIVE (NEGATIVE); URINE KETONE NEGATIVE (NEGATIVE); URINE NITRITE NEGATIVE (NEGATIVE); URINE PROTEIN NEGATIVE (NEGATIVE); URINE UROBILINOGEN NEGATIVE mg/dL (0.2-1.0)
[2017-11-25 15:25] LABS: URINE LEUK ESTERASE 2+ (NEGATIVE)
[2017-11-25 15:27] LABS: EPI CELLS RARE /HPF (FEW); URINE HYALINE CAST 43 /lpf; URINE MUCUS RARE
[2017-11-25] MEDS: ATORVASTATIN CA 40 MG TABLET (FP) PO SCH (21:55)
[2017-11-25] MEDS: INSULIN DETEMIR 100 UNITS/ML MDV SQ SCH (21:55)
[2017-11-26] MEDS: MILRINONE 20MG/100ML IVPB - 20,000 MCG/100 ML ML IVPB SCH ×2 (00:52→06:48)
[2017-11-26] MEDS: GLIMEPIRIDE 4 MG TABLET (FP) PO SCH (06:13)
[2017-11-26] MEDS: sitaGLIPtin PHOSPHATE 25 MG TABLET (FP) PO SCH (06:13)
[2017-11-26] MEDS: ALLOPURINOL 100 MG TABLET (FP) PO SCH (06:13)
[2017-11-26] MEDS: INSULIN SLIDING SCALE (NOVOLOG) 1 VIAL SQ SCH ×2 (06:13→10:22)
[2017-11-26 07:28] LABS: BASO % 1.3 % (0-2.0); HEMATOCRIT 24.3 % (35.4-49); HEMOGLOBIN 7.4 GM/dL (11.7-16.9); LYMPH % 2.5 % (8-40); MCHC 30.4 g/dl (32.0-35.9); MEAN CELL VOLUME 75.6 fl (80-96); MEAN PLT VOLUME 8.6 fl (7.5-11.1); MONO % 3.9 % (3.8-10.2); NEUT % 92.3 % (42.8-82.8); PLATELET COUNT 230 K/MM3 (134-434); RBC 3.21 M/mm3 (4.00-5.60); RDW 20.1 % (11.9-15.9); WHITE BLOOD COUNT 14.8 K/mm3 (4.0-10.0)
[2017-11-26 07:46] LABS: PROTHROMBIN TIME (PATIENT) 46.7 SEC (9.98-11.88)
[2017-11-26 08:24] LABS: INR 4.13 (0.82-1.09)
[2017-11-26 08:39] LABS: BLOOD UREA NITROGEN 96 mg/dL (7-18); CALCIUM 7.9 mg/dL (8.5-10.1); CO2 17 mmol/L (21-32); CREATININE 4.1 mg/dL (0.7-1.3); GLUCOSE,RANDOM 227 mg/dL (74-106); MAGNESIUM 2.5 mg/dL (1.8-2.4); PHOSPHOROUS 5.3 mg/dL (2.5-4.9)
[2017-11-26] MEDS: CARVEDILOL 25 MG TABLET (FP) PO SCH (09:55)
[2017-11-26] MEDS: FERROUS SO4 325 MG TABLET (FP) PO SCH (09:55)
[2017-11-26] MEDS: POLYETHYLENE GLYCOL 3350 119 GM BTL PO SCH (09:55)
[2017-11-26] MEDS: amLODIPine BESYLATE 5 MG TABLET (FP) PO SCH (09:55)
--- NOTE | 2017-11-26 10:50 | PN ---
Progress Note, Physician Chief Complaint: Events noted Currently on BIPAP Lethargic Reduced urine output on Lasix drip and Milrinone - Current Medication List Current Medications: Active Medications Acetaminophen (Tylenol -) 650 mg PO Q4H PRN PRN Reason: PAIN OR FEVER Allopurinol (Zyloprim -) 100 mg PO TID [facility] Last Admin: 11/26/17 06:13 Dose: 100 mg Amlodipine Besylate (Norvasc -) 5 mg PO DAILY [facility] Last Admin: 11/26/17 09:55 Dose: 5 mg Atorvastatin Calcium (Lipitor -) 40 mg PO HS [facility] Last Admin: 11/25/17 21:55 Dose: 40 mg Carvedilol (Coreg -) 25 mg PO BID [facility] Last Admin: 11/26/17 09:55 Dose: 25 mg Docusate Sodium (Colace -) 100 mg PO BID PRN PRN Reason: CONSTIPATION Ferrous Sulfate (Feosol -) 325 mg PO TIDCM [facility] Last Admin: 11/26/17 09:55 Dose: 325 mg Glimepiride (Amaryl -) 4 mg PO BIDAC [facility] Last Admin: 11/26/17 06:13 Dose: 4 mg Furosemide 100 mg/ Dextrose 100 mls @ 5 mls/hr IVPB TITR NIK; 5 MG/HR PRN Reason: Protocol Last Admin: 11/25/17 15:37 Dose: 5 mg/hr, 5 mls/hr Milrinone Lactate/Dextrose (Milrinone 20mg/100ml Ivpb -) 20,000 mcg in 100 mls @ 8.644 mls/hr IVPB TITR NIK; 0.375 MCG/KG/MIN PRN Reason: Protocol Last Admin: 11/26/17 06:48 Dose: 0.37 mcg/kg/min, 8.7 mls/hr Insulin Aspart (Novolog Vial Sliding Scale -) 1 vial SQ [facility] PRN Reason: Protocol Last Admin: 11/26/17 10:22 Dose: 8 unit Insulin Detemir (Levemir Vial) 10 units SQ [facility] Last Admin: 11/25/17 21:55 Dose: 10 units Polyethylene Glycol (Miralax (For Daily Use) -) 17 gm PO BID [facility] Last Admin: 11/26/17 09:55 Dose: 17 gm Sitagliptin Phosphate (Januvia -) 25 mg PO ACBK [facility] Last Admin: 11/26/17 06:13 Dose: 25 mg - Objective Vital Signs: Vital Signs Temperature 97.6 F 11/26/17 05:00 Pulse Rate 86 11/26/17 05:00 Respiratory Rate 22 11/26/17 05:00 Blood Pressure 109/47 11/26/17 05:00 O2 Sat by Pulse Oximetry (%) 100 11/25/17 21:00 Cardiovascular: Yes: Regular Rate and Rhythm, S1, S2 Respiratory: Yes: Diminished, On BiPap, Rhonchi Gastrointestinal: Yes: Normal Bowel Sounds, Soft. No: Tenderness Edema: No Labs: CBC, BMP 11/26/17 07:07 11/26/17 07:07 INR, PTT INR 4.13 (0.82-1.09) H* 11/26/17 07:07 - ....Imaging Chest X-ray: Report Reviewed (Pulmonary venous congestion) Problem List - Problems (1) Acute respiratory failure Code(s): J96.00 - ACUTE RESPIRATORY FAILURE, UNSP W HYPOXIA OR HYPERCAPNIA (2) Congestive heart failure Code(s): I50.9 - HEART FAILURE, UNSPECIFIED Qualifiers: Congestive heart failure type: systolic Congestive heart failure chronicity : acute on chronic Qualified Code(s): I50.23 - Acute on chronic systolic ( congestive) heart failure (3) Hypothyroidism Code(s): E03.9 - HYPOTHYROIDISM, UNSPECIFIED (4) ILD (interstitial lung disease) Code(s): J84.9 - INTERSTITIAL PULMONARY DISEASE, UNSPECIFIED (5) S/P TAVR (transcatheter aortic valve replacement) Code(s): Z95.2 - PRESENCE OF PROSTHETIC HEART VALVE (6) Anemia Code(s): D64.9 - ANEMIA, UNSPECIFIED Qualifiers: Anemia type: iron deficiency Iron deficiency anemia type: unspecified iron deficiency Qualified Code(s): D50.9 - Iron deficiency anemia, unspecified (7) Atherosclerotic heart disease Code(s): I25.10 - ATHSCL HEART DISEASE OF [place] CORONARY ARTERY W/O ANG PCTRS Qualifiers: Coronary Disease-Associated Artery/Lesion type: [place] artery [place] vs. transplanted heart: [place] heart Associated angina: without angina Qualified Code(s): I25.10 - Atherosclerotic heart disease of [place] coronary artery without angina pectoris (8) Chronic kidney disease Code(s): N18.9 - CHRONIC KIDNEY DISEASE, UNSPECIFIED Qualifiers: Chronic kidney disease stage: stage 3 (moderate) Qualified Code(s): N18.3 - Chronic kidney disease, stage 3 (moderate) (9) Diabetes mellitus Code(s): E11.9 - TYPE 2 DIABETES MELLITUS WITHOUT COMPLICATIONS Qualifiers: Diabetes mellitus type: type 2 Chronic kidney disease stage: stage 3 ( moderate) (10) GI bleed Code(s): K92.2 - GASTROINTESTINAL HEMORRHAGE, UNSPECIFIED (11) H/O percutaneous transluminal coronary angioplasty Code(s): Z98.61 - CORONARY ANGIOPLASTY STATUS (12) Hypercholesteremia Code(s): E78.0 - PURE HYPERCHOLESTEROLEMIA * DO NOT USE * (13) Hypertension Code(s): I10 - ESSENTIAL (PRIMARY) HYPERTENSION Qualifiers: Hypertension type: essential hypertension Qualified Code(s): I10 - Essential (primary) hypertension (14) Left ventricular systolic dysfunction Code(s): I51.9 - HEART DISEASE, UNSPECIFIED (15) Paroxysmal atrial fibrillation Code(s): I48.0 - PAROXYSMAL ATRIAL FIBRILLATION Assessment/Plan 1. Acute on chronic LV systolic failure in context of dietary indiscretion 2. Aortic stenosis post TAVR 3. Medtronic PPM with atrial undersensing 4. Atrial fibrillation [id number] = 6 with supratherapeutic INR 5. CAD status post multivessel PCI, angina pectoris 6. GI bleed previous history of AVM, history of polyps S/P transfusion 7. Diabetes mellitus 8. Hypercholesteremia 9. Hypertension 10. Acute on CKD with oliguria 11. Hypothyroidism 12. Hyperuricemia PLAN: 1. Continue Lasix gtt and Milrinone drip and monitor renal function and electrolytes - monitor urine output 2. Continue Carvedilol 25 bid, Norvasc 5 qd, Lipitor 40 qhs as tolerated. Entresto 49/51 bid has been held pending renal function stabilization 3. Hold Coumadin and monitor Hgb/Hct and INR closely 4. Plan is to transfer to [facility] for RHC guidance treatment under Dr. Caleb Smith of [facility] 5. 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 Patient and family previously was hesitant. Further plans are to follow Guarded Imtiaz Negron MD
--- NOTE | 2017-11-26 11:36 | HOSP ---
Subjective - Review of Symptoms Events since last encounter: Code 99 was called around 11:15am. Arrived in patient's room and found him to be non-responsive and CPR being performed by RN. ALCS initiated immediately, 3 epinephrines and 1 bicarb were given during the code, for exact timing please refer to code sheet. PCP Dr. Julio was present. At 11:28am, family decided to stop resuscitation effort and CPR was subsequently stopped per family's request. On re-examination, Patient was still PEA, non-responsive, even to painful stimuli, pupils fixed and non-reactive. No carotid, or femoral pulses present, no spontaneous breathing, no heart sound or breath sounds. Time of pronounced at 11:30am on 11/26/2017. Family notified at 11:30am. Grievance services offered to family. Physical Examination Vital Signs: Vital Signs Temperature 97.6 F 11/26/17 05:00 Pulse Rate 86 11/26/17 05:00 Respiratory Rate 22 11/26/17 05:00 Blood Pressure 109/47 11/26/17 05:00 O2 Sat by Pulse Oximetry (%) 100 11/25/17 21:00 Labs: CBC, BMP 11/26/17 07:07 11/26/17 07:07 Visit type - Emergency Visit Emergency Visit: No - New Patient This patient is new to me today: Yes Date on this admission: 11/26/17 - Critical Care Critical Care patient: No
--- NOTE | 2017-11-26 11:44 | DS ---
Physical Examination Vital Signs: Vital Signs Temperature 36.4 C 11/26/17 05:00 Pulse Rate 86 11/26/17 05:00 Respiratory Rate 22 11/26/17 05:00 Blood Pressure 109/47 11/26/17 05:00 O2 Sat by Pulse Oximetry (%) 100 11/25/17 21:00 Labs: CBC, BMP 11/26/17 07:07 11/26/17 07:07 Discharge Summary Reason For Visit: DYSPNEA ON EXERTION,CHF,CHEST PAIN Current Active Problems Acute respiratory failure (Acute) Chest pain (Acute) Congestive heart failure (Acute) Hypothyroidism (Acute) ILD (interstitial lung disease) (Acute) S/P TAVR (transcatheter aortic valve replacement) (Acute) Hospital Course: (1) Congestive heart failure Code(s): I50.9 - HEART FAILURE, UNSPECIFIED Qualifiers: Congestive heart failure type: systolic Congestive heart failure chronicity : acute on chronic Qualified Code(s): I50.23 - Acute on chronic systolic ( congestive) heart failure (2) Anemia Code(s): D64.9 - ANEMIA, UNSPECIFIED Qualifiers: Anemia type: iron deficiency Iron deficiency anemia type: unspecified iron deficiency Qualified Code(s): D50.9 - Iron deficiency anemia, unspecified (3) Chronic kidney disease Code(s): N18.9 - CHRONIC KIDNEY DISEASE, UNSPECIFIED Qualifiers: Chronic kidney disease stage: stage 3 (moderate) Qualified Code(s): N18.3 - Chronic kidney disease, stage 3 (moderate) (4) Diabetes mellitus Code(s): E11.9 - TYPE 2 DIABETES MELLITUS WITHOUT COMPLICATIONS Qualifiers: Diabetes mellitus type: type 2 Chronic kidney disease stage: stage 3 ( moderate) (5) Hypercholesteremia Code(s): E78.0 - PURE HYPERCHOLESTEROLEMIA * DO NOT USE * (6) Hypertension Code(s): I10 - ESSENTIAL (PRIMARY) HYPERTENSION Qualifiers: Hypertension type: essential hypertension Qualified Code(s): I10 - Essential (primary) hypertension (7) Paroxysmal atrial fibrillation Code(s): I48.0 - PAROXYSMAL ATRIAL FIBRILLATION (8) ILD (interstitial lung disease) Code(s): J84.9 - INTERSTITIAL PULMONARY DISEASE, UNSPECIFIED (9) Acute respiratory failure Code(s): J96.00 - ACUTE RESPIRATORY FAILURE, UNSP W HYPOXIA OR HYPERCAPNIA Mr Moran presented to the hospital with acute respiratory failure secondary to acute systolic CHF exacerbation in end stage CHF. He was admitted to the hospital and placed on bipap. He was diuresed with IV lasix. He was seen by cardiology. Initially he appeared to be improving, however on the IV lasix he had minimal urine output and his creatinine was increasing. He was seen by nephrology. He was placed on milrinone and lasix gtt to encourage diuresis, however this was unsuccessful. [place] was consulted for transfer and he was accepted but was awaiting a bed. This morning patient became asystolic and hypoxic. Resuscitation was begun (Full Code status was confirmed). His family ( and daughter) presented to the hospital near the beginning of resuscitation. In discussion they decided Mr Moran would not wanted to be resuscitated. A pulse had not been established at that time and resuscitation was discontinued at the request of the family. Mr Moran at 11:30am on 11/26 Condition: Stable - Instructions Referrals: Anibal Mercedes MD [Primary Care Provider] - Disposition: - Home Medications Comprehensive Discharge Medication List: Ambulatory Orders Allopurinol [Zyloprim -] 100 mg PO TID 11/23/17 Amlodipine Besylate 5 mg PO DAILY 11/23/17 Atorvastatin Ca [Lipitor] 40 mg PO HS 11/23/17 Carvedilol 25 mg PO BID 11/23/17 Furosemide 80 mg PO BID 11/23/17 Glimepiride 4 mg PO BID 11/23/17 Sacubitril/Valsartan [Entresto 49 mg-51 mg Tablet] 1 each PO BID 11/23/17 Sitagliptin Phosphate [Januvia] 25 mg PO BID 11/23/17 Warfarin Na [Coumadin] 5 mg PO DAILY 11/23/17
[2017-11-26 11:52] LABS: ANION GAP 19 (8-16); CHLORIDE 99 mmol/L (98-107); SODIUM 135 mmol/L (136-145)
--- NOTE | 2017-11-26 12:00 | PROC ---
Intubation - Intubation Reason for Intubation: Respiratory Insufficiency, Respiratory Failure, Airway Protection, Ventilatory Failure (Cardiopulmonary Arrest), Other Time of Intubation: 11:30 Intubation Method: orotracheal Blade used: Mac Tube Size (cm): 7.0 Tube position @ lip (cm): 22 Tube position confirmed by: Direct visualization, CO2 detector, Breath sounds Breath Sounds after Intubation: equal Post Intubation Xray: No (code called before x-ray taken) Remarks: Code 99 Response Called re. pt. in cardiopulmonary arrest. On arrival, ACLS/CPR in progress, pt. with BMV with 100%O2 by respiratory. ETT placed with ease during CPR with continued compressions. Bilateral breath sounds equal, positive color change on carboximeter, ventilation via AMBU bag with 100%O2. Pt. remained pulseless. Continued management of code as per medical team.
[2017-11-26 12:19] VITALS: BP 103/45; PULSE 91; TEMP 97.8
--- NOTE | 2017-11-26 15:10 | PN ---
Progress Note, Physician Chief Complaint: Patient with CALOS, Sever biventricular failure, poor prognosis. - Current Medication List Current Medications: Active Medications Acetaminophen (Tylenol -) 650 mg PO Q4H PRN PRN Reason: PAIN OR FEVER Allopurinol (Zyloprim -) 100 mg PO TID [facility] Last Admin: 11/26/17 06:13 Dose: 100 mg Amlodipine Besylate (Norvasc -) 5 mg PO DAILY [facility] Last Admin: 11/26/17 09:55 Dose: 5 mg Atorvastatin Calcium (Lipitor -) 40 mg PO HS [facility] Last Admin: 11/25/17 21:55 Dose: 40 mg Carvedilol (Coreg -) 25 mg PO BID [facility] Last Admin: 11/26/17 09:55 Dose: 25 mg Docusate Sodium (Colace -) 100 mg PO BID PRN PRN Reason: CONSTIPATION Ferrous Sulfate (Feosol -) 325 mg PO TIDCM [facility] Last Admin: 11/26/17 09:55 Dose: 325 mg Glimepiride (Amaryl -) 4 mg PO BIDAC [facility] Last Admin: 11/26/17 06:13 Dose: 4 mg Furosemide 100 mg/ Dextrose 100 mls @ 5 mls/hr IVPB TITR NIK; 5 MG/HR PRN Reason: Protocol Last Admin: 11/25/17 15:37 Dose: 5 mg/hr, 5 mls/hr Milrinone Lactate/Dextrose (Milrinone 20mg/100ml Ivpb -) 20,000 mcg in 100 mls @ 8.644 mls/hr IVPB TITR NIK; 0.375 MCG/KG/MIN PRN Reason: Protocol Last Admin: 11/26/17 06:48 Dose: 0.37 mcg/kg/min, 8.7 mls/hr Insulin Aspart (Novolog Vial Sliding Scale -) 1 vial SQ ACHS [facility] PRN Reason: Protocol Last Admin: 11/26/17 10:22 Dose: 8 unit Insulin Detemir (Levemir Vial) 10 units SQ [facility] Last Admin: 11/25/17 21:55 Dose: 10 units Polyethylene Glycol (Miralax (For Daily Use) -) 17 gm PO BID [facility] Last Admin: 11/26/17 09:55 Dose: 17 gm Sitagliptin Phosphate (Januvia -) 25 mg PO ACBK [facility] Last Admin: 11/26/17 06:13 Dose: 25 mg - Objective Vital Signs: Vital Signs Temperature 97.8 F 11/26/17 09:00 Pulse Rate 91 H 11/26/17 09:00 Respiratory Rate 20 11/26/17 09:00 Blood Pressure 103/45 11/26/17 09:00 O2 Sat by Pulse Oximetry (%) 100 11/26/17 09:00 Labs: CBC, BMP 11/26/17 07:07 11/26/17 07:07 INR, PTT INR 4.13 (0.82-1.09) H* 11/26/17 07:07 Problem List - Problems (1) Acute renal failure Code(s): N17.9 - ACUTE KIDNEY FAILURE, UNSPECIFIED (2) Acute respiratory failure Code(s): J96.00 - ACUTE RESPIRATORY FAILURE, UNSP W HYPOXIA OR HYPERCAPNIA (3) Chest pain Code(s): R07.9 - CHEST PAIN, UNSPECIFIED Qualifiers: Chest pain type: other chest pain Qualified Code(s): R07.89 - Other chest pain; R07.8 - Other chest pain (4) Congestive heart failure Code(s): I50.9 - HEART FAILURE, UNSPECIFIED Qualifiers: Congestive heart failure type: systolic Congestive heart failure chronicity : acute on chronic Qualified Code(s): I50.23 - Acute on chronic systolic ( congestive) heart failure (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 transplanted heart: [place] heart Associated angina: without angina Qualified Code(s): I25.10 - Atherosclerotic heart disease of [place] coronary artery without angina pectoris (8) Chronic kidney disease Code(s): N18.9 - CHRONIC KIDNEY DISEASE, UNSPECIFIED Qualifiers: Chronic kidney disease stage: stage 3 (moderate) Qualified Code(s): N18.3 - Chronic kidney disease, stage 3 (moderate) Assessment/Plan The patient with severe heart failure..Seen in the morning. CALOS related to profound Renal hypoperfusion. Hemodynamic status poor. Prognosis [place]. Deepa Angela MD
== END 2017-11-26 15:17 | disposition expired | DRG 291 ==
LOC: JER 10:33 → JERBED 15:19 → J4S 19:48 → J4W 11-25 13:25
PROVIDERS: ADMIT Internal Medicine Geriatric Medicine; ATTEND Internal Medicine Geriatric Medicine
PROC: 5A1935Z Respiratory Ventilation, Less than 24 Consecutive Hours (ICD-10-PCS; principal; 2017-11-26)
PROC: 0BH17EZ Insertion of Endotracheal Airway into Trachea, Via Natural or Artificial Opening (ICD-10-PCS; 2017-11-26)
PROC: 5A12012 Performance of Cardiac Output, Single, Manual (ICD-10-PCS; 2017-11-26)
DX: I13.0 Hypertensive heart and chronic kidney disease with heart failure and stage 1 through stage 4 chronic kidney disease, or unspecified chronic kidney disease (principal); I50.23 Acute on chronic systolic (congestive) heart failure; J96.01 Acute respiratory failure with hypoxia; N17.9 Acute kidney failure, unspecified; J84.9 Interstitial pulmonary disease, unspecified; E11.22 Type 2 diabetes mellitus with diabetic chronic kidney disease; N18.3 Chronic kidney disease, stage 3 (moderate); E03.9 Hypothyroidism, unspecified; R07.9 Chest pain, unspecified; D64.9 Anemia, unspecified; I48.0 Paroxysmal atrial fibrillation; I25.119 Atherosclerotic heart disease of native coronary artery with unspecified angina pectoris; Z98.61 Coronary angioplasty status; I46.9 Cardiac arrest, cause unspecified; E78.00 Pure hypercholesterolemia, unspecified
CPT/HCPCS: 36415; 36600; 71045-TC; 80048; 80053; 81003; 81015; 82550; 82570; 82803; 82962; 83036; 83605; 83735; 83880; 84100; 84156; 84300; 84484; 84540; 85025; 85610; 85730; 86850; 86900; 86901; 87040; 87804; 93005; 93010; 93306-TC; 94660; 99285-25